=== PATIENT | male | born 1965 | race African-American/Black ===

== ENCOUNTER 2018-03-12 19:14 | Emergency (ER) | payer OTHER ==
[~2018-03-12] VITALS: Ht 177.8 cm; Wt 80.0 kg
[2018-03-12] MEDS ORDERED: KEPPSOL GT (19:21)
[2018-03-12] MEDS ORDERED: SODIUM CHLORIDE 0.9% 1,000 ML IV ONE (20:05)
[2018-03-12] MEDS ORDERED: LEVETIRACETAM 500MG PREMIX 100 ML IV ONE (20:15)
[2018-03-12 21:29] LABS: HEMATOCRIT. 26.5 % (42.0-52.0); HEMOGLOBIN. 8.6 g/dL (14.0-18.0); MEAN CORPUSCULAR HEMOGLOBIN 24.9 pg (28.0-32.0); MEAN CORPUSCULAR VOLUME 76.9 fL (80.0-94.0); MEAN PLATELET VOLUME 8.5 fl (7.4-10.4); PLATELET 117 x1000/uL (130-400); RED BLOOD CELL COUNT 3.45 mill/uL (4.7-6.1); RED CELL DISTRIBUTION WIDTH 21.1 % (11.6-14.6)
[2018-03-12 21:33] LABS: CHLORIDE 101 mEq/L (98-107)
[2018-03-12 22:00] LABS: PLATELET ESTIMATE DECREASED
[2018-03-12 22:03] LABS: ETHANOL BLOOD 301 mg/dL
[2018-03-13 06:20] VITALS: BP 122/78
== END 2018-03-13 06:36 | disposition home or self-care (01) ==
LOC: ER 19:14
DX: R56.9 Unspecified convulsions (principal); F10.229 Alcohol dependence with intoxication, unspecified; Z91.19 Patient's noncompliance with other medical treatment and regimen; Z79.899 Other long term (current) drug therapy; Y90.8 Blood alcohol level of 240 mg/100 ml or more
CPT/HCPCS: 36415; 70450; 70486; 80053; 85025; 96365; 99285; G0482; J1953; J7030; Z7610

== ENCOUNTER 2018-05-24 20:11 | Emergency (ER) | payer OTHER ==
[~2018-05-24] VITALS: Ht 182.9 cm; Wt 82.0 kg
[~2018-05-24 20:11] MED LIST: KEPPSOL GT
[2018-05-24] MEDS ORDERED: SODIUM CHLORIDE 0.9% 1,000 ML IV ONE (20:47)
[2018-05-24] MEDS ORDERED: LEVETIRACETAM 250MG TABLET PO ONE (21:00)
[2018-05-24 21:40] LABS: BASOPHILS % 2.5 % (0.0-2.0); EOSINOPHILS % 3.5 % (0.0-5.0); HEMATOCRIT. 27.7 % (42.0-52.0); HEMOGLOBIN. 8.7 g/dL (14.0-18.0); LYMPHOCYTES % 37.9 % (20.0-50.0); MEAN CORPUSCULAR HEMOGLOBIN 23.1 pg (28.0-32.0); MEAN CORPUSCULAR VOLUME 73.5 fL (80.0-94.0); MEAN PLATELET VOLUME 9.1 fl (7.4-10.4); MONOCYTES % 9.1 % (2.0-8.0); PLATELET 134 x1000/uL (130-400); RED BLOOD CELL COUNT 3.77 mill/uL (4.7-6.1)
[2018-05-24 21:48] LABS: INR 1.3; PROTHROMBIN TIME 12.7 sec (9.1-11.1)
[2018-05-24 21:53] LABS: CHLORIDE 95 mEq/L (98-107); PLATELET ESTIMATE NORMAL
[2018-05-24 22:08] LABS: ETHANOL BLOOD 330 mg/dL
[2018-05-25 05:53] VITALS: BP 135/85
== END 2018-05-25 06:04 | disposition home or self-care (01) ==
LOC: ER 20:11
DX: G40.909 Epilepsy, unspecified, not intractable, without status epilepticus (principal); F10.129 Alcohol abuse with intoxication, unspecified; D50.9 Iron deficiency anemia, unspecified; M79.602 Pain in left arm; I10 Essential (primary) hypertension; F17.200 Nicotine dependence, unspecified, uncomplicated; Z79.899 Other long term (current) drug therapy; Y90.8 Blood alcohol level of 240 mg/100 ml or more
CPT/HCPCS: 36415; 70450; 80053; 83605; 85025; 85610; 93005; 99285; G0482; J7030; Z7610

== ENCOUNTER 2018-07-05 19:28 | Emergency (ER) | payer OTHER ==
[~2018-07-05] VITALS: Ht 188 cm; Wt 100.0 kg
[2018-07-05] MEDS ORDERED: SODIUM CHLORIDE 0.9% 1,000 ML IV ONE (22:53)
[2018-07-05] MEDS ORDERED: LEVETIRACETAM 500MG PREMIX 100 ML IV ONE (23:00)
[2018-07-05] MEDS ORDERED: ONDANSETRON HCL 4MG/2ML INJ IV ONE (23:15)
[2018-07-06 02:14] LABS: CHLORIDE 102 mEq/L (98-107)
[2018-07-06] MEDS ORDERED: POTASSIUM CHLORIDE 20MEQ TABLET SR PO ONE (02:21)
[2018-07-06 02:37] LABS: ETHANOL BLOOD 365 mg/dL
[2018-07-06 03:02] LABS: BASOPHILS % 1.5 % (0.0-2.0); EOSINOPHILS % 4.3 % (0.0-5.0); HEMATOCRIT. 25.6 % (42.0-52.0); HEMOGLOBIN. 8.2 g/dL (14.0-18.0); LYMPHOCYTES % 37.9 % (20.0-50.0); MEAN CORPUSCULAR HEMOGLOBIN 22.1 pg (28.0-32.0); MEAN CORPUSCULAR VOLUME 68.9 fL (80.0-94.0); MEAN PLATELET VOLUME 8.6 fl (7.4-10.4); MONOCYTES % 8.4 % (2.0-8.0); NEUTROPHILS % 47.9 % (40.0-76.0); PLATELET 103 x1000/uL (130-400); RED BLOOD CELL COUNT 3.72 mill/uL (4.7-6.1); RED CELL DISTRIBUTION WIDTH 22.4 % (11.6-14.6)
[2018-07-06 05:00] LABS: PLATELET ESTIMATE DECREASED
[2018-07-06 06:00] VITALS: BP 121/74
== END 2018-07-06 06:15 | disposition home or self-care (01) ==
LOC: ER 19:28
DX: G93.40 Encephalopathy, unspecified (principal); G40.909 Epilepsy, unspecified, not intractable, without status epilepticus; F10.229 Alcohol dependence with intoxication, unspecified; I10 Essential (primary) hypertension; F12.10 Cannabis abuse, uncomplicated; F17.200 Nicotine dependence, unspecified, uncomplicated; Z79.899 Other long term (current) drug therapy; Y90.8 Blood alcohol level of 240 mg/100 ml or more
CPT/HCPCS: 36415; 80053; 82962; 85025; 96365; 96375; 99285; G0482; J1953; J2405; J7030

== ENCOUNTER 2018-07-13 20:45 | Emergency (ER) | payer OTHER ==
[~2018-07-13] VITALS: Ht 188 cm; Wt 82.0 kg
[2018-07-14 05:45] VITALS: BP 99/61
[2018-07-14] MEDS ORDERED: KETOROLAC 30MG/ML VIAL IV STA (06:29)
[2018-07-14] MEDS ORDERED: SODIUM CHLORIDE 0.9% 1,000 ML IV ONE (06:29)
[2018-07-14] MEDS ORDERED: LEVETIRACETAM 500MG PREMIX 100 ML IV ONE (06:30)
[2018-07-14 07:25] LABS: CHLORIDE 103 mEq/L (98-107)
[2018-07-14 07:28] LABS: ETHANOL BLOOD 172 mg/dL
[2018-07-14 08:39] LABS: *AMPHETAMINES SCREEN URINE NEGATIVE (NEGATIVE); *BARBITURATES SCREEN URINE NEGATIVE (NEGATIVE); *BENZODIAZEPINES SCREEN URINE PRESUMTIVE POSITIVE (NEGATIVE); *COCAINE SCREEN URINE NEGATIVE (NEGATIVE); METHADONE URINE SCREEN NEGATIVE (NEGATIVE); OPIATES URINE SCREEN NEGATIVE (NEGATIVE)
[2018-07-14 08:40] LABS: CANNABINOID URINE SCREEN PRESUMTIVE POSITIVE (NEGATIVE); PHENCYCLIDINE URINE SCREEN NEGATIVE (NEGATIVE)
[2018-07-14 08:41] LABS: HEMATOCRIT. 28.2 % (42.0-52.0); HEMOGLOBIN. 8.8 g/dL (14.0-18.0); MEAN CORPUSCULAR HEMOGLOBIN 22.2 pg (28.0-32.0); MEAN CORPUSCULAR VOLUME 71.1 fL (80.0-94.0); MEAN PLATELET VOLUME 8.8 fl (7.4-10.4); PLATELET 150 x1000/uL (130-400); RED BLOOD CELL COUNT 3.97 mill/uL (4.7-6.1); RED CELL DISTRIBUTION WIDTH 24.8 % (11.6-14.6)
[2018-07-14] MEDS ORDERED: SODIUM CHLORIDE 0.9% 1000ML BAG (SEPSIS BOLUS) IV ONE (09:00)
[2018-07-14] MEDS ORDERED: LEVOFLOXACIN 750MG PREMIX 150 ML IV ONE (09:00)
[2018-07-14 09:21] LABS: NUCLEATED RED BLOOD CELLS 2 /100 WBC
[2018-07-14 09:22] LABS: PLATELET ESTIMATE NORMAL
== END 2018-07-14 09:41 | disposition left against medical advice (07) ==
LOC: ER 22:48
DX: G40.909 Epilepsy, unspecified, not intractable, without status epilepticus (principal); S22.42XA Multiple fractures of ribs, left side, initial encounter for closed fracture; M25.512 Pain in left shoulder; M25.532 Pain in left wrist; M25.552 Pain in left hip; M79.672 Pain in left foot; W19.XXXA Unspecified fall, initial encounter; Y93.9 Activity, unspecified; Y92.9 Unspecified place or not applicable
CPT/HCPCS: 36415; 70450; 70486; 71045; 71100; 73030; 73110; 73502; 80053; 80305; 84484; 85025; 93005; 99284; G0482; J1953; J7030; J1885

== ENCOUNTER 2018-08-05 18:27 | Emergency (ER) | payer OTHER ==
[~2018-08-05] VITALS: Ht 180.3 cm; Wt 95.0 kg
[2018-08-05 19:43] LABS: HEMATOCRIT. 26.8 % (42.0-52.0); HEMOGLOBIN. 8.1 g/dL (14.0-18.0); MEAN CORPUSCULAR HEMOGLOBIN 21.2 pg (28.0-32.0); MEAN CORPUSCULAR VOLUME 69.9 fL (80.0-94.0); PLATELET 217 x1000/uL (130-400); RED BLOOD CELL COUNT 3.83 mill/uL (4.7-6.1)
[2018-08-05 19:45] LABS: CHLORIDE 97 mEq/L (98-107)
[2018-08-05 19:51] LABS: ETHANOL BLOOD 133 mg/dL; PHOSPHORUS 3.2 mg/dL (2.5-4.9)
[2018-08-05] MEDS ORDERED: ACETAMINOPHEN 325MG TABLET PO ONE (20:15)
[2018-08-05] MEDS ORDERED: SODIUM CHLORIDE 0.9% 1,000 ML IV ONE (20:15)
[2018-08-05 20:36] LABS: PLATELET ESTIMATE NORMAL
[2018-08-05 21:22] LABS: CLARITY URINE CLEAR (CLEAR); COLOR URINE YELLOW (YELLOW); KETONES URINE NEGATIVE (NEGATIVE); LEUKOCYTE ESTERASE URINE NEGATIVE (NEGATIVE); NITRITE URINE NEGATIVE (NEGATIVE); OCCULT BLOOD URINE NEGATIVE (NEGATIVE); PH URINE 5.5 (4.5-8.0); PROTEIN URINE NEGATIVE (NEGATIVE); SPECIFIC GRAVITY URINE 1.002 (1.005-1.030); UROBILINOGEN URINE 0.2 E.U./dL (0.2-1.0)
[2018-08-05] MEDS ORDERED: IOHEXOL-350 100 ML BOTTLE ONE (23:01)
[2018-08-05 23:30] VITALS: BP 132/88
== END 2018-08-06 00:36 | disposition home or self-care (01) ==
LOC: ER 18:27
DX: G40.909 Epilepsy, unspecified, not intractable, without status epilepticus (principal); R06.02 Shortness of breath; R07.89 Other chest pain; M79.89 Other specified soft tissue disorders; I44.0 Atrioventricular block, first degree; I11.9 Hypertensive heart disease without heart failure; F12.90 Cannabis use, unspecified, uncomplicated; Z79.899 Other long term (current) drug therapy; Z59.0 Homelessness
CPT/HCPCS: 36415; 71045; 71275; 80053; 81003; 83735; 83880; 84100; 84484; 85025; 85379; 93005; 93970; 99284; G0482; J7030; Q9967

== ENCOUNTER 2018-08-29 19:17 | Emergency (ER) | payer OTHER ==
[~2018-08-29] VITALS: Ht 177.8 cm; Wt 91.0 kg
[2018-08-29 19:23] VITALS: BP 114/74
== END 2018-08-29 22:50 | disposition left against medical advice (07) ==
LOC: EDBD → ER 19:17
DX: R07.89 Other chest pain (principal); Z53.21 Procedure and treatment not carried out due to patient leaving prior to being seen by health care provider

== ENCOUNTER 2018-08-30 18:32 | Emergency (ER) | payer OTHER ==
[~2018-08-30] VITALS: Ht 177.8 cm; Wt 98.0 kg
[2018-08-30] MEDS ORDERED: ACETAMINOPHEN 325MG TABLET PO STA (19:07)
[2018-08-30 21:14] LABS: HEMATOCRIT. 32.6 % (42.0-52.0); HEMOGLOBIN. 9.9 g/dL (14.0-18.0); MEAN CORPUSCULAR VOLUME 72.1 fL (80.0-94.0); MEAN PLATELET VOLUME 9.9 fl (7.4-10.4); PLATELET 82 x1000/uL (130-400); RED BLOOD CELL COUNT 4.51 mill/uL (4.7-6.1); RED CELL DISTRIBUTION WIDTH 28.4 % (11.6-14.6)
[2018-08-30 21:22] LABS: CHLORIDE 97 mEq/L (98-107); INR 1.1; PROTHROMBIN TIME 11.1 sec (9.1-11.1)
[2018-08-30 21:39] LABS: PLATELET ESTIMATE DECREASED
[2018-08-31 06:06] LABS: CLARITY URINE CLEAR (CLEAR); COLOR URINE YELLOW (YELLOW); KETONES URINE NEGATIVE (NEGATIVE); LEUKOCYTE ESTERASE URINE NEGATIVE (NEGATIVE); NITRITE URINE NEGATIVE (NEGATIVE); OCCULT BLOOD URINE NEGATIVE (NEGATIVE); PROTEIN URINE NEGATIVE (NEGATIVE); SPECIFIC GRAVITY URINE 1.005 (1.005-1.030); UROBILINOGEN URINE 0.2 E.U./dL (0.2-1.0)
[2018-08-31 10:49] VITALS: BP 128/80
== END 2018-08-31 10:55 | disposition home or self-care (01) ==
LOC: EDBD → ER 18:32
DX: R51 Headache (principal); R07.89 Other chest pain; M25.532 Pain in left wrist; M79.10 Myalgia, unspecified site; M25.522 Pain in left elbow; R11.0 Nausea; R56.9 Unspecified convulsions; I10 Essential (primary) hypertension; Z79.899 Other long term (current) drug therapy
CPT/HCPCS: 36415; 71045; 73080; 73090; 73110; 84484; 99284

== ENCOUNTER 2018-09-10 18:00 | Emergency (ER) | payer OTHER ==
[~2018-09-10] VITALS: Ht 185.4 cm; Wt 90.0 kg
[2018-09-10 18:04] VITALS: BP 112/74
== END 2018-09-10 22:05 | disposition left against medical advice (07) ==
LOC: EDBD → ER 18:00
DX: Z53.21 Procedure and treatment not carried out due to patient leaving prior to being seen by health care provider (principal)

== ENCOUNTER 2018-09-13 03:50 | Emergency (ER) | payer OTHER ==
[~2018-09-13] VITALS: Ht 188 cm; Wt 86.5 kg
[2018-09-13 04:06] VITALS: BP 152/99
== END 2018-09-13 09:17 | disposition left against medical advice (07) ==
LOC: EDBD → ER 03:50
DX: Z53.21 Procedure and treatment not carried out due to patient leaving prior to being seen by health care provider (principal)

== ENCOUNTER 2018-09-14 22:38 | Emergency (ER) | payer OTHER ==
[~2018-09-14] VITALS: Ht 172.7 cm; Wt 86.0 kg
[2018-09-14] MEDS ORDERED: ACETAMINOPHEN 325MG TABLET PO ONE (23:30)
[2018-09-15 00:30] LABS: CHLORIDE 101 mEq/L (98-107)
[2018-09-15 08:25] VITALS: BP 123/84
== END 2018-09-15 08:26 | disposition home or self-care (01) ==
LOC: EDBD → ER 22:38
DX: G40.909 Epilepsy, unspecified, not intractable, without status epilepticus (principal); M25.531 Pain in right wrist; M25.552 Pain in left hip; R51 Headache; F10.20 Alcohol dependence, uncomplicated; Y90.9 Presence of alcohol in blood, level not specified; W01.0XXA Fall on same level from slipping, tripping and stumbling without subsequent striking against object, initial encounter; Y93.89 Activity, other specified; Y92.89 Other specified places as the place of occurrence of the external cause; Z59.0 Homelessness
CPT/HCPCS: 36415; 73110; 80053; 99284; Z7610

== ENCOUNTER 2018-09-26 20:03 | Emergency (ER) | payer SELFPAY | END 2018-09-26 21:25 | disposition left against medical advice (07) | LOC: EDBD → ER 20:03 | DX: Z53.21 Procedure and treatment not carried out due to patient leaving prior to being seen by health care provider (principal) ==

== ENCOUNTER 2018-10-01 21:08 | Emergency (ER) | payer MEDICAID, OTHER ==
[~2018-10-01] VITALS: Ht 172.7 cm; Wt 83.0 kg
[2018-10-01] MEDS ORDERED: ASPIRIN 325MG EC TABLET PO ONE (23:15)
[2018-10-01] MEDS ORDERED: KETOROLAC 60MG/2ML VIAL IM ONE (23:30)
[2018-10-02 01:43] VITALS: BP 105/70
== END 2018-10-02 02:24 | disposition home or self-care (01) ==
LOC: ER 21:08
DX: G40.909 Epilepsy, unspecified, not intractable, without status epilepticus (principal); R07.9 Chest pain, unspecified; F12.10 Cannabis abuse, uncomplicated; Z98.890 Other specified postprocedural states; W18.30XA Fall on same level, unspecified, initial encounter; Y93.89 Activity, other specified; Y92.89 Other specified places as the place of occurrence of the external cause; Y99.8 Other external cause status
CPT/HCPCS: 71045; 93005; 96372; 99283; J1885

== ENCOUNTER 2018-10-02 02:54 | Emergency (ER) | payer OTHER ==
[~2018-10-02] VITALS: Ht 188 cm; Wt 86.0 kg
[2018-10-02 03:43] VITALS: BP 120/75
== END 2018-10-02 09:32 | disposition left against medical advice (07) ==
LOC: EDUNIT# 02:54 → ER 02:54
DX: R07.2 Precordial pain (principal); Z53.21 Procedure and treatment not carried out due to patient leaving prior to being seen by health care provider

== ENCOUNTER 2018-11-01 22:51 | Emergency (ER) | payer OTHER ==
[~2018-11-01] VITALS: Ht 188 cm; Wt 86.0 kg
[2018-11-02] MEDS ORDERED: ASPIRIN 81MG TABLET PO ONE (00:15)
[2018-11-02] MEDS ORDERED: NITROGLYCERIN 0.4MG TABLET SL SL PRN (00:15)
[2018-11-02 00:46] LABS: CHLORIDE 98 mEq/L (98-107)
[2018-11-02 01:23] LABS: HEMATOCRIT. 29.1 % (42.0-52.0); HEMOGLOBIN. 9.1 g/dL (14.0-18.0); MEAN CORPUSCULAR HEMOGLOBIN 22.5 pg (28.0-32.0); MEAN CORPUSCULAR VOLUME 72.3 fL (80.0-94.0); MEAN PLATELET VOLUME 8.5 fl (7.4-10.4); PLATELET 126 x1000/uL (130-400); RED BLOOD CELL COUNT 4.03 mill/uL (4.7-6.1); RED CELL DISTRIBUTION WIDTH 26.7 % (11.6-14.6)
[2018-11-02] MEDS ORDERED: POTASSIUM CHLORIDE 20MEQ TABLET SR PO SCH (02:30)
[2018-11-02 05:24] VITALS: BP 133/92
[2018-11-02 05:50] LABS: PLATELET ESTIMATE SLIGHTLY DECREASED
== END 2018-11-02 05:26 | disposition home or self-care (01) ==
LOC: ER 22:51
DX: R07.89 Other chest pain (principal); F12.10 Cannabis abuse, uncomplicated; I10 Essential (primary) hypertension; R56.9 Unspecified convulsions; Z98.890 Other specified postprocedural states
CPT/HCPCS: 36415; 71045; 83880; 84484; 93005; 99284

== ENCOUNTER 2018-11-02 19:59 | Emergency (ER) | payer OTHER ==
[~2018-11-02] VITALS: Ht 188 cm; Wt 82.0 kg
[2018-11-02] MEDS ORDERED: ONDANSETRON HCL 4MG/2ML INJ IV STA (23:39)
[2018-11-02] MEDS ORDERED: KETOROLAC 30MG/ML VIAL IV STA (23:39)
[2018-11-02] MEDS ORDERED: SODIUM CHLORIDE 0.9% 1,000 ML IV ONE (23:39)
[2018-11-02] MEDS ORDERED: MAGNESIUM/ALUMINUM HYDROXIDE/SIMETHICONE 30ML UDC PO ONE (23:45)
[2018-11-02] MEDS ORDERED: VISCOUS LIDOCAINE 2% 15 ML UDC PO ONE (23:45)
[2018-11-03 00:30] LABS: CHLORIDE 98 mEq/L (98-107)
[2018-11-03 00:36] LABS: BASOPHILS % 1.3 % (0.0-2.0); EOSINOPHILS % 6.9 % (0.0-5.0); HEMATOCRIT. 30.6 % (42.0-52.0); HEMOGLOBIN. 9.5 g/dL (14.0-18.0); LYMPHOCYTES % 55.4 % (20.0-50.0); MEAN CORPUSCULAR HEMOGLOBIN 22.5 pg (28.0-32.0); MEAN CORPUSCULAR VOLUME 72.7 fL (80.0-94.0); MEAN PLATELET VOLUME 8.8 fl (7.4-10.4); MONOCYTES % 11.4 % (2.0-8.0); PLATELET 136 x1000/uL (130-400); RED BLOOD CELL COUNT 4.21 mill/uL (4.7-6.1); RED CELL DISTRIBUTION WIDTH 27.4 % (11.6-14.6)
[2018-11-03] MEDS ORDERED: ASPIRIN 325MG TABLET PO ONE (01:15)
[2018-11-03] MEDS ORDERED: HEPARIN 5000 UNITS/ML VIAL IV SCH ×2 (01:33→01:35)
[2018-11-03 02:06] VITALS: BP 122/86
== END 2018-11-03 02:17 | disposition short-term general hospital (02) ==
LOC: ER 19:59
DX: I21.3 ST elevation (STEMI) myocardial infarction of unspecified site (principal); D50.9 Iron deficiency anemia, unspecified; R10.84 Generalized abdominal pain; I10 Essential (primary) hypertension
CPT/HCPCS: 36415; 71045; 80053; 82962; 83880; 84484; 85025; 93005; 96374; 96375; 99285; J1644; J1885; J2405; J7030; Z7610

== ENCOUNTER 2018-11-03 23:14 | Emergency (ER) | payer OTHER ==
[~2018-11-03] VITALS: Ht 182.9 cm; Wt 100.0 kg
[2018-11-04 07:28] VITALS: BP 133/75
== END 2018-11-04 09:04 | disposition left against medical advice (07) ==
LOC: ER 23:14
DX: R06.02 Shortness of breath (principal); Z53.21 Procedure and treatment not carried out due to patient leaving prior to being seen by health care provider

== ENCOUNTER 2018-11-07 20:08 | Emergency (ER) | payer OTHER ==
[~2018-11-07] VITALS: Ht 188 cm; Wt 82.0 kg
[2018-11-07 21:28] VITALS: BP 130/86
== END 2018-11-08 02:00 | disposition left against medical advice (07) ==
LOC: ER 20:08
DX: Z53.21 Procedure and treatment not carried out due to patient leaving prior to being seen by health care provider (principal)

== ENCOUNTER 2018-11-08 23:11 | Emergency (ER) | payer OTHER | END 2018-11-09 01:18 | disposition left against medical advice (07) | LOC: ER 23:11 | DX: R51 Headache (principal); Z53.21 Procedure and treatment not carried out due to patient leaving prior to being seen by health care provider ==

== ENCOUNTER 2018-11-09 02:10 | Emergency (ER) | payer OTHER ==
[~2018-11-09] VITALS: Ht 188 cm; Wt 82.0 kg
[2018-11-09 05:15] VITALS: BP 122/92
== END 2018-11-09 08:32 | disposition left against medical advice (07) ==
LOC: ER 02:10
DX: R56.9 Unspecified convulsions (principal); Z53.21 Procedure and treatment not carried out due to patient leaving prior to being seen by health care provider

== ENCOUNTER 2018-11-10 22:29 | Emergency (ER) | payer OTHER ==
[~2018-11-10] VITALS: Ht 177.8 cm; Wt 86.4 kg
[2018-11-11] MEDS ORDERED: SODIUM CHLORIDE 0.9% 1,000 ML IV ONE (01:57)
[2018-11-11] MEDS ORDERED: KETOROLAC 30MG/ML VIAL IV STA (01:57)
[2018-11-11 02:49] LABS: HEMATOCRIT. 27.9 % (42.0-52.0); HEMOGLOBIN. 8.8 g/dL (14.0-18.0); MEAN CORPUSCULAR HEMOGLOBIN 22.3 pg (28.0-32.0); MEAN CORPUSCULAR VOLUME 71.2 fL (80.0-94.0); MEAN PLATELET VOLUME 8.8 fl (7.4-10.4); PLATELET 277 x1000/uL (130-400); RED BLOOD CELL COUNT 3.92 mill/uL (4.7-6.1); RED CELL DISTRIBUTION WIDTH 25.8 % (11.6-14.6)
[2018-11-11 02:53] LABS: CHLORIDE 103 mEq/L (98-107)
[2018-11-11 02:54] LABS: CLARITY URINE CLEAR (CLEAR); COLOR URINE YELLOW (YELLOW); KETONES URINE NEGATIVE (NEGATIVE); LEUKOCYTE ESTERASE URINE NEGATIVE (NEGATIVE); NITRITE URINE NEGATIVE (NEGATIVE); OCCULT BLOOD URINE NEGATIVE (NEGATIVE); PH URINE 5.5 (4.5-8.0); PROTEIN URINE NEGATIVE (NEGATIVE); SPECIFIC GRAVITY URINE 1.003 (1.005-1.030); UROBILINOGEN URINE 0.2 E.U./dL (0.2-1.0)
[2018-11-11 03:03] LABS: *AMPHETAMINES SCREEN URINE NEGATIVE (NEGATIVE); *BARBITURATES SCREEN URINE NEGATIVE (NEGATIVE); *BENZODIAZEPINES SCREEN URINE NEGATIVE (NEGATIVE); *COCAINE SCREEN URINE NEGATIVE (NEGATIVE)
[2018-11-11 03:05] LABS: CANNABINOID URINE SCREEN PRESUMTIVE POSITIVE (NEGATIVE); METHADONE URINE SCREEN NEGATIVE (NEGATIVE); OPIATES URINE SCREEN NEGATIVE (NEGATIVE); PHENCYCLIDINE URINE SCREEN NEGATIVE (NEGATIVE)
[2018-11-11 03:06] LABS: ETHANOL BLOOD 311 mg/dL
[2018-11-11] MEDS ORDERED: LEVETIRACETAM 500MG PREMIX 100 ML IV NR (04:30)
[2018-11-11 05:31] LABS: PLATELET ESTIMATE NORMAL
[2018-11-11 09:19] VITALS: BP 109/74
== END 2018-11-11 09:42 | disposition home or self-care (01) ==
LOC: ER 22:29
DX: F10.129 Alcohol abuse with intoxication, unspecified (principal); G40.909 Epilepsy, unspecified, not intractable, without status epilepticus; F12.10 Cannabis abuse, uncomplicated; I10 Essential (primary) hypertension; F17.200 Nicotine dependence, unspecified, uncomplicated; D64.9 Anemia, unspecified; Z79.899 Other long term (current) drug therapy; Y90.8 Blood alcohol level of 240 mg/100 ml or more
CPT/HCPCS: 36415; 71045; 73502; 80053; 80305; 80320; 81003; 85025; 93005; 96365; 96375; 99284; J1885; J1953; J7030; Z7610; G0480

== ENCOUNTER 2018-11-13 20:47 | Emergency (ER) | payer OTHER ==
[~2018-11-13] VITALS: Ht 177.8 cm; Wt 95.0 kg
[2018-11-13 20:51] VITALS: BP 124/84
== END 2018-11-13 23:15 | disposition left against medical advice (07) ==
LOC: ER 20:47
DX: R51 Headache (principal); Z53.21 Procedure and treatment not carried out due to patient leaving prior to being seen by health care provider

== ENCOUNTER 2018-11-16 21:45 | Inpatient (IN) | payer OTHER ==
[~2018-11-16] VITALS: Ht 188 cm; Wt 78.1 kg
[2018-11-17] MEDS ORDERED: ACETAMINOPHEN 325MG TABLET PO STA (06:23)
[2018-11-17 07:01] LABS: CHLORIDE 102 mEq/L (98-107); HEMATOCRIT. 28.2 % (42.0-52.0); HEMOGLOBIN. 8.7 g/dL (14.0-18.0); MEAN CORPUSCULAR HEMOGLOBIN 22.2 pg (28.0-32.0); MEAN CORPUSCULAR VOLUME 71.9 fL (80.0-94.0); MEAN PLATELET VOLUME 8.8 fl (7.4-10.4); PLATELET 155 x1000/uL (130-400); RED BLOOD CELL COUNT 3.92 mill/uL (4.7-6.1); RED CELL DISTRIBUTION WIDTH 25.2 % (11.6-14.6)
[2018-11-17 07:44] LABS: CLARITY URINE CLEAR (CLEAR); COLOR URINE YELLOW (YELLOW); KETONES URINE NEGATIVE (NEGATIVE); LEUKOCYTE ESTERASE URINE NEGATIVE (NEGATIVE); NITRITE URINE NEGATIVE (NEGATIVE); OCCULT BLOOD URINE NEGATIVE (NEGATIVE); PH URINE 6.5 (4.5-8.0); PROTEIN URINE NEGATIVE (NEGATIVE); SPECIFIC GRAVITY URINE 1.009 (1.005-1.030); UROBILINOGEN URINE 0.2 E.U./dL (0.2-1.0)
[2018-11-17 07:46] LABS: PLATELET ESTIMATE NORMAL
[2018-11-17] MEDS ORDERED: ASPIRIN 81MG TABLET PO ONE (08:00)
[2018-11-17] MEDS ORDERED: HYDROCODONE/ACETAMINOPHEN 5/325MG TABLET PO PRN (09:30)
[2018-11-17] MEDS ORDERED: ZOLPIDEM TARTRATE 5MG TABLET PO PRN (09:30)
[2018-11-17] MEDS ORDERED: ONDANSETRON HCL 4MG/2ML INJ IV PRN (09:30)
[2018-11-17 09:57] LABS: CREATINE KINASE MB FRACTION 2.7 ng/mL (0.5-3.6)
[2018-11-17 10:24] LABS: HEPATITIS B SURFACE ANTIGEN NEGATIVE
[2018-11-17 10:54] LABS: HEPATITIS A AB IGM NEGATIVE (NEGATIVE)
[2018-11-17] MEDS ORDERED: LORAZEPAM 2MG/ML CPJ IV PRN (11:30)
[2018-11-17 15:04] LABS: *COCAINE SCREEN URINE NEGATIVE (NEGATIVE); METHADONE URINE SCREEN NEGATIVE (NEGATIVE)
[2018-11-17 15:05] LABS: *AMPHETAMINES SCREEN URINE NEGATIVE (NEGATIVE); *BARBITURATES SCREEN URINE NEGATIVE (NEGATIVE); *BENZODIAZEPINES SCREEN URINE NEGATIVE (NEGATIVE); CANNABINOID URINE SCREEN PRESUMTIVE POSITIVE (NEGATIVE); OPIATES URINE SCREEN NEGATIVE (NEGATIVE); PHENCYCLIDINE URINE SCREEN NEGATIVE (NEGATIVE)
[2018-11-17 17:24] VITALS: BP 128/85
[2018-11-17] MEDS: THIAMINE HCL 100MG TABLET PO SCH (17:57)
[2018-11-17 18:04] VITALS: BP 128/85
[2018-11-17 20:00] VITALS: BP 129/82
[2018-11-17] MEDS: LEVETIRACETAM 500MG TABLET PO SCH (20:09)
[2018-11-18] VITALS: BP 126/76
[2018-11-18 04:00] VITALS: BP 125/88
[2018-11-18 07:22] LABS: CHLORIDE 101 mEq/L (98-107)
[2018-11-18 07:30] LABS: BASOPHILS % 3.2 % (0.0-2.0); EOSINOPHILS % 5.8 % (0.0-5.0); HEMATOCRIT. 28.5 % (42.0-52.0); HEMOGLOBIN. 8.9 g/dL (14.0-18.0); LYMPHOCYTES % 22.3 % (20.0-50.0); MEAN CORPUSCULAR HEMOGLOBIN 22.3 pg (28.0-32.0); MEAN CORPUSCULAR VOLUME 71.6 fL (80.0-94.0); MEAN PLATELET VOLUME 8.8 fl (7.4-10.4); MONOCYTES % 11.3 % (2.0-8.0); NEUTROPHILS % 57.4 % (40.0-76.0); PLATELET 150 x1000/uL (130-400); RED BLOOD CELL COUNT 3.99 mill/uL (4.7-6.1); RED CELL DISTRIBUTION WIDTH 25.2 % (11.6-14.6)
[2018-11-18 08:00] VITALS: BP 125/78
[2018-11-18] MEDS: THIAMINE HCL 100MG TABLET PO SCH (09:22)
[2018-11-18] MEDS: LEVETIRACETAM 500MG TABLET PO SCH ×2 (09:22→20:14)
[2018-11-18] MEDS: ASPIRIN 81MG TABLET PO SCH (09:22)
[2018-11-18] MEDS: FOLIC ACID 1MG TABLET PO SCH (09:23)
[2018-11-18] MEDS: MULTIVITAMINS,THER W-MINERALS TABLET PO SCH (09:23)
[2018-11-18 12:00] VITALS: BP 110/66
[2018-11-18 16:00] VITALS: BP 128/76
[2018-11-18 20:00] VITALS: BP 121/83
[2018-11-18] MEDS: ACETAMINOPHEN 325MG TABLET PO PRN (20:24)
[2018-11-19] VITALS: BP 125/82
[2018-11-19 04:00] VITALS: BP 113/78
[2018-11-19 08:00] VITALS: BP 122/78
[2018-11-19] MEDS: LEVETIRACETAM 500MG TABLET PO SCH (08:57)
[2018-11-19] MEDS: FOLIC ACID 1MG TABLET PO SCH (08:57)
[2018-11-19] MEDS: THIAMINE HCL 100MG TABLET PO SCH (08:57)
[2018-11-19] MEDS: MULTIVITAMINS,THER W-MINERALS TABLET PO SCH (08:57)
[2018-11-19] MEDS: ASPIRIN 81MG TABLET PO SCH (08:57)
[2018-11-19] MEDS: ACETAMINOPHEN 325MG TABLET PO PRN (09:14)
[2018-11-19 12:00] VITALS: BP 122/77
[2018-11-19] MEDS ORDERED: ASPI-1160 PO (14:54)
[2018-11-19] MEDS ORDERED: DIPHENHYDRAMINE 12.5MG/5ML UDC PO PRN (15:00)
[2018-11-19 16:00] VITALS: BP 117/72
[2018-11-19 18:24] VITALS: BP 117/72
== END 2018-11-19 19:30 | disposition home or self-care (01) | DRG 203 ==
LOC: ER 21:45 → EDBEDREQ 11-17 08:57 → EDBEDREQSVC 11-17 08:57 → EDBEDREQ 11-17 08:58 → 5WST 11-17 12:19 → EDBEDREQSVC 11-17 12:20 → ENRESERV 11-17 15:05
PROVIDERS: ADMIT Internal Medicine; ATTEND Internal Medicine
DX: M94.0 Chondrocostal junction syndrome [Tietze] (principal); I11.0 Hypertensive heart disease with heart failure; E44.1 Mild protein-calorie malnutrition; I50.32 Chronic diastolic (congestive) heart failure; D64.9 Anemia, unspecified; D72.819 Decreased white blood cell count, unspecified; G40.909 Epilepsy, unspecified, not intractable, without status epilepticus; I44.0 Atrioventricular block, first degree; F10.10 Alcohol abuse, uncomplicated; F12.90 Cannabis use, unspecified, uncomplicated; B19.20 Unspecified viral hepatitis C without hepatic coma; Z68.22 Body mass index [BMI] 22.0-22.9, adult
CPT/HCPCS: 36415; 71045; 80061; 80305; 82550; 82553; 83880; 84443; 84484; 86705; 86709; 86803; 87340; 93005; 93306; 93970; 99285

== ENCOUNTER 2018-11-22 18:01 | Emergency (ER) | payer OTHER ==
[~2018-11-22] VITALS: Ht 188 cm; Wt 81.8 kg
[~2018-11-22 18:01] MED LIST changes: +ASPI-1160 PO
[2018-11-22] MEDS ORDERED: LEVETIRACETAM 500MG PREMIX 100 ML IV ONE (23:30)
[2018-11-23 00:14] LABS: HEMATOCRIT. 27.7 % (42.0-52.0); HEMOGLOBIN. 8.8 g/dL (14.0-18.0); MEAN CORPUSCULAR HEMOGLOBIN 22.7 pg (28.0-32.0); MEAN CORPUSCULAR VOLUME 71.7 fL (80.0-94.0); MEAN PLATELET VOLUME 8.6 fl (7.4-10.4); PLATELET 102 x1000/uL (130-400); RED BLOOD CELL COUNT 3.87 mill/uL (4.7-6.1); RED CELL DISTRIBUTION WIDTH 25.4 % (11.6-14.6)
[2018-11-23 00:17] LABS: CHLORIDE 102 mEq/L (98-107)
[2018-11-23 00:21] LABS: ETHANOL BLOOD 168 mg/dL
[2018-11-23 01:46] LABS: PLATELET ESTIMATE SLIGHTLY DECREASED
[2018-11-23 02:36] LABS: CLARITY URINE CLEAR (CLEAR); COLOR URINE YELLOW (YELLOW); KETONES URINE NEGATIVE (NEGATIVE); LEUKOCYTE ESTERASE URINE NEGATIVE (NEGATIVE); NITRITE URINE NEGATIVE (NEGATIVE); OCCULT BLOOD URINE NEGATIVE (NEGATIVE); PROTEIN URINE NEGATIVE (NEGATIVE); SPECIFIC GRAVITY URINE 1.003 (1.005-1.030); UROBILINOGEN URINE 0.2 E.U./dL (0.2-1.0)
[2018-11-23 02:46] LABS: *AMPHETAMINES SCREEN URINE NEGATIVE (NEGATIVE); *BARBITURATES SCREEN URINE NEGATIVE (NEGATIVE); *BENZODIAZEPINES SCREEN URINE NEGATIVE (NEGATIVE); *COCAINE SCREEN URINE NEGATIVE (NEGATIVE); METHADONE URINE SCREEN NEGATIVE (NEGATIVE); OPIATES URINE SCREEN NEGATIVE (NEGATIVE); PHENCYCLIDINE URINE SCREEN NEGATIVE (NEGATIVE)
[2018-11-23 02:47] LABS: CANNABINOID URINE SCREEN PRESUMTIVE POSITIVE (NEGATIVE)
[2018-11-23 03:54] VITALS: BP 120/77
== END 2018-11-23 04:31 | disposition home or self-care (01) ==
LOC: ER 18:01
DX: T51.0X1A Toxic effect of ethanol, accidental (unintentional), initial encounter (principal); R07.89 Other chest pain; R56.9 Unspecified convulsions; Y92.89 Other specified places as the place of occurrence of the external cause; I10 Essential (primary) hypertension; Z79.82 Long term (current) use of aspirin
CPT/HCPCS: 36415; 70450; 71045; 80053; 80305; 80320; 81003; 83690; 84484; 85025; 93005; 96374; 99284; J1953; G0480

== ENCOUNTER 2018-11-26 22:02 | Inpatient (IN) | payer OTHER ==
[~2018-11-26] VITALS: Ht 188 cm; Wt 82.1 kg
[2018-11-27] MEDS ORDERED: SODIUM CHLORIDE 0.9% 1,000 ML IV ONE (04:42)
[2018-11-27] MEDS ORDERED: LEVETIRACETAM 500MG PREMIX 100 ML IV ONE (04:45)
[2018-11-27 05:00] LABS: BASOPHILS % 1.9 % (0.0-2.0); EOSINOPHILS % 12.4 % (0.0-5.0); HEMATOCRIT. 27.3 % (42.0-52.0); HEMOGLOBIN. 8.5 g/dL (14.0-18.0); MEAN CORPUSCULAR HEMOGLOBIN 22.4 pg (28.0-32.0); MEAN CORPUSCULAR VOLUME 71.5 fL (80.0-94.0); MEAN PLATELET VOLUME 8.3 fl (7.4-10.4); MONOCYTES % 13.3 % (2.0-8.0); NEUTROPHILS % 21.4 % (40.0-76.0); PLATELET 156 x1000/uL (130-400); RED BLOOD CELL COUNT 3.82 mill/uL (4.7-6.1)
[2018-11-27 05:06] LABS: CHLORIDE 104 mEq/L (98-107)
[2018-11-27] MEDS ORDERED: GUAIFENESIN 200MG/10ML SUGAR FREE UDC PO PRN (09:00)
[2018-11-27] MEDS ORDERED: DOCUSATE SODIUM 100MG CAPSULE PO PRN (09:00)
[2018-11-27] MEDS ORDERED: DIPHENHYDRAMINE 50MG/ML VIAL IV PRN (09:00)
[2018-11-27] MEDS ORDERED: MAGNESIUM/ALUMINUM HYDROXIDE/SIMETHICONE 30ML UDC PO PRN (09:00)
[2018-11-27] MEDS ORDERED: ACETAMINOPHEN 325MG TABLET PO PRN (09:00)
[2018-11-27] MEDS ORDERED: ONDANSETRON HCL 4MG/2ML INJ IV PRN (09:00)
[2018-11-27] MEDS ORDERED: CLONIDINE 0.1MG TABLET PO PRN (09:00)
[2018-11-27] MEDS ORDERED: IPRATROPIUM/ALBUTEROL 0.5-3(2.5)MG/3ML NEB INH PRN (09:00)
[2018-11-27] MEDS ORDERED: HYDROCODONE/ACETAMINOPHEN 5/325MG TABLET PO PRN (09:00)
[2018-11-27 09:18] LABS: PHOSPHORUS 4.8 mg/dL (2.5-4.9)
[2018-11-27 10:13] VITALS: BP 135/85
[2018-11-27 10:21] VITALS: BP 135/85
[2018-11-27 11:37] VITALS: BP 142/94
[2018-11-27 14:32] VITALS: BP 142/94
[2018-11-27 15:11] LABS: CLARITY URINE CLEAR (CLEAR); COLOR URINE YELLOW (YELLOW); KETONES URINE NEGATIVE (NEGATIVE); LEUKOCYTE ESTERASE URINE NEGATIVE (NEGATIVE); NITRITE URINE NEGATIVE (NEGATIVE); OCCULT BLOOD URINE NEGATIVE (NEGATIVE); PROTEIN URINE NEGATIVE (NEGATIVE); SPECIFIC GRAVITY URINE 1.009 (1.005-1.030); UROBILINOGEN URINE 0.2 E.U./dL (0.2-1.0)
[2018-11-27 15:11] LABS: CREATINE KINASE MB FRACTION 2.6 ng/mL (0.5-3.6)
[2018-11-27 15:30] LABS: *AMPHETAMINES SCREEN URINE NEGATIVE (NEGATIVE); *BARBITURATES SCREEN URINE NEGATIVE (NEGATIVE)
[2018-11-27 15:31] LABS: *BENZODIAZEPINES SCREEN URINE NEGATIVE (NEGATIVE); *COCAINE SCREEN URINE NEGATIVE (NEGATIVE); CANNABINOID URINE SCREEN PRESUMTIVE POSITIVE (NEGATIVE); METHADONE URINE SCREEN NEGATIVE (NEGATIVE); OPIATES URINE SCREEN NEGATIVE (NEGATIVE); PHENCYCLIDINE URINE SCREEN NEGATIVE (NEGATIVE)
[2018-11-27 15:38] VITALS: BP 145/88
[2018-11-27 20:00] VITALS: BP 141/74
== END 2018-11-27 21:40 | disposition short-term general hospital (02) | DRG 203 ==
LOC: ER 22:31 → 8WST 11-27 05:34 → EDBEDREQTM 11-27 05:40 → EDBEDREQ 11-27 05:40 → ENRESERV 11-27 07:24
PROVIDERS: ADMIT Internal Medicine; ATTEND Internal Medicine
DX: R07.89 Other chest pain (principal); E44.1 Mild protein-calorie malnutrition; B19.20 Unspecified viral hepatitis C without hepatic coma; D72.819 Decreased white blood cell count, unspecified; R55 Syncope and collapse; F10.10 Alcohol abuse, uncomplicated; G40.909 Epilepsy, unspecified, not intractable, without status epilepticus; I10 Essential (primary) hypertension; F12.90 Cannabis use, unspecified, uncomplicated; D64.9 Anemia, unspecified; W18.30XA Fall on same level, unspecified, initial encounter; Y93.89 Activity, other specified; Y92.89 Other specified places as the place of occurrence of the external cause; Y99.8 Other external cause status; Z68.23 Body mass index [BMI] 23.0-23.9, adult
CPT/HCPCS: 36415; 71045; 73070; 80305; 82550; 82553; 83735; 83880; 84100; 84484; 93005; 96365; 99285; J1953; J7030

== ENCOUNTER 2018-12-02 20:45 | Emergency (ER) | payer OTHER ==
[~2018-12-02] VITALS: Ht 188 cm; Wt 87.0 kg
[2018-12-02] MEDS ORDERED: KETOROLAC 60MG/2ML VIAL IM STA (22:38)
[2018-12-02] MEDS ORDERED: LEVETIRACETAM 500MG TABLET PO ONE (22:45)
[2018-12-02 23:30] VITALS: BP 102/60
== END 2018-12-02 23:31 | disposition home or self-care (01) ==
LOC: ER 21:08
DX: S40.012A Contusion of left shoulder, initial encounter (principal); S50.02XA Contusion of left elbow, initial encounter; I11.0 Hypertensive heart disease with heart failure; I50.9 Heart failure, unspecified; G40.909 Epilepsy, unspecified, not intractable, without status epilepticus; Z79.899 Other long term (current) drug therapy; Z79.82 Long term (current) use of aspirin; W19.XXXA Unspecified fall, initial encounter; Y93.89 Activity, other specified; Y92.89 Other specified places as the place of occurrence of the external cause; Y99.8 Other external cause status
CPT/HCPCS: 73030; 73080; 96372; 99283; J1885

== ENCOUNTER 2018-12-03 00:01 | Emergency (ER) | payer OTHER ==
[~2018-12-03] VITALS: Ht 188 cm; Wt 86.0 kg
[2018-12-03 01:57] VITALS: BP 123/90
== END 2018-12-03 02:22 | disposition left against medical advice (07) ==
LOC: ER 00:01
DX: Z53.21 Procedure and treatment not carried out due to patient leaving prior to being seen by health care provider (principal)

== ENCOUNTER 2018-12-03 16:49 | Emergency (ER) | payer OTHER ==
[~2018-12-03] VITALS: Ht 188 cm; Wt 86.0 kg
[2018-12-03 18:29] LABS: BASOPHILS % 2.1 % (0.0-2.0); CHLORIDE 102 mEq/L (98-107); EOSINOPHILS % 5.9 % (0.0-5.0); HEMOGLOBIN. 7.6 g/dL (14.0-18.0); LYMPHOCYTES % 47.5 % (20.0-50.0); MEAN CORPUSCULAR HEMOGLOBIN 22.2 pg (28.0-32.0); MEAN CORPUSCULAR VOLUME 70.2 fL (80.0-94.0); MEAN PLATELET VOLUME 8.6 fl (7.4-10.4); MONOCYTES % 8.7 % (2.0-8.0); NEUTROPHILS % 35.8 % (40.0-76.0); PLATELET 154 x1000/uL (130-400); RED BLOOD CELL COUNT 3.42 mill/uL (4.7-6.1); RED CELL DISTRIBUTION WIDTH 24.7 % (11.6-14.6)
[2018-12-03] MEDS ORDERED: LEVETIRACETAM 500MG PREMIX 100 ML IV ONE (18:30)
[2018-12-03 18:34] LABS: ETHANOL BLOOD 260 mg/dL
[2018-12-03] MEDS ORDERED: KETOROLAC 15MG/ML VIAL IV ONE (19:00)
[2018-12-03 19:07] LABS: PLATELET ESTIMATE NORMAL
[2018-12-03] MEDS ORDERED: LEVETIRACETAM 500MG TABLET PO ONE (20:15)
[2018-12-03] MEDS ORDERED: IBUPROFEN 600MG TABLET PO ONE (20:15)
[2018-12-03 21:06] VITALS: BP 118/64
[2018-12-03 21:07] LABS: CLARITY URINE CLEAR (CLEAR); COLOR URINE YELLOW (YELLOW); KETONES URINE NEGATIVE (NEGATIVE); LEUKOCYTE ESTERASE URINE NEGATIVE (NEGATIVE); NITRITE URINE NEGATIVE (NEGATIVE); OCCULT BLOOD URINE NEGATIVE (NEGATIVE); PROTEIN URINE NEGATIVE (NEGATIVE); SPECIFIC GRAVITY URINE 1.005 (1.005-1.030); UROBILINOGEN URINE 0.2 E.U./dL (0.2-1.0)
[2018-12-03 21:21] LABS: CANNABINOID URINE SCREEN PRESUMTIVE POSITIVE (NEGATIVE); METHADONE URINE SCREEN NEGATIVE (NEGATIVE); OPIATES URINE SCREEN NEGATIVE (NEGATIVE); PHENCYCLIDINE URINE SCREEN NEGATIVE (NEGATIVE)
[2018-12-03 21:22] LABS: *AMPHETAMINES SCREEN URINE NEGATIVE (NEGATIVE); *BARBITURATES SCREEN URINE NEGATIVE (NEGATIVE); *BENZODIAZEPINES SCREEN URINE NEGATIVE (NEGATIVE); *COCAINE SCREEN URINE NEGATIVE (NEGATIVE)
== END 2018-12-03 21:30 | disposition home or self-care (01) ==
LOC: ER 16:49
DX: G40.909 Epilepsy, unspecified, not intractable, without status epilepticus (principal); S52.125A Nondisplaced fracture of head of left radius, initial encounter for closed fracture; W01.198A Fall on same level from slipping, tripping and stumbling with subsequent striking against other object, initial encounter; Y93.89 Activity, other specified; Y92.89 Other specified places as the place of occurrence of the external cause; Y99.8 Other external cause status; I10 Essential (primary) hypertension; F12.90 Cannabis use, unspecified, uncomplicated
CPT/HCPCS: 29105; 36415; 71045; 73080; 80053; 80305; 80320; 81003; 82962; 85025; 96374; 99284; J1885; J1953; A4565; G0480

== ENCOUNTER 2018-12-07 19:52 | Emergency (ER) | payer OTHER ==
[~2018-12-07] VITALS: Ht 188 cm; Wt 86.0 kg
[2018-12-08] MEDS ORDERED: LEVETIRACETAM 500MG PREMIX 100 ML IV ONE (00:45)
[2018-12-08 01:17] LABS: CHLORIDE 103 mEq/L (98-107)
[2018-12-08 01:18] LABS: BASOPHILS % 2.7 % (0.0-2.0); EOSINOPHILS % 6.5 % (0.0-5.0); HEMATOCRIT. 28.3 % (42.0-52.0); HEMOGLOBIN. 8.8 g/dL (14.0-18.0); LYMPHOCYTES % 35.1 % (20.0-50.0); MEAN CORPUSCULAR HEMOGLOBIN 21.9 pg (28.0-32.0); MEAN CORPUSCULAR VOLUME 70.2 fL (80.0-94.0); MEAN PLATELET VOLUME 8.6 fl (7.4-10.4); MONOCYTES % 7.6 % (2.0-8.0); NEUTROPHILS % 48.1 % (40.0-76.0); PLATELET 154 x1000/uL (130-400); RED BLOOD CELL COUNT 4.03 mill/uL (4.7-6.1); RED CELL DISTRIBUTION WIDTH 24.3 % (11.6-14.6)
[2018-12-08 01:20] LABS: INR 1.1; PROTHROMBIN TIME 11.3 sec (9.6-11.0)
[2018-12-08 01:28] LABS: ETHANOL BLOOD 296 mg/dL
[2018-12-08] MEDS ORDERED: LEVETIRACETAM 500MG TABLET PO ONE (02:30)
[2018-12-08 03:15] LABS: PLATELET ESTIMATE NORMAL
[2018-12-08 03:38] LABS: CLARITY URINE CLEAR (CLEAR); COLOR URINE PALE YELLOW (YELLOW); KETONES URINE NEGATIVE (NEGATIVE); LEUKOCYTE ESTERASE URINE NEGATIVE (NEGATIVE); NITRITE URINE NEGATIVE (NEGATIVE); OCCULT BLOOD URINE NEGATIVE (NEGATIVE); PROTEIN URINE NEGATIVE (NEGATIVE); SPECIFIC GRAVITY URINE 1.004 (1.005-1.030); UROBILINOGEN URINE 0.2 E.U./dL (0.2-1.0)
[2018-12-08 03:43] LABS: *AMPHETAMINES SCREEN URINE NEGATIVE (NEGATIVE); *BARBITURATES SCREEN URINE NEGATIVE (NEGATIVE); *BENZODIAZEPINES SCREEN URINE NEGATIVE (NEGATIVE); *COCAINE SCREEN URINE NEGATIVE (NEGATIVE)
[2018-12-08 03:44] LABS: CANNABINOID URINE SCREEN PRESUMTIVE POSITIVE (NEGATIVE); METHADONE URINE SCREEN NEGATIVE (NEGATIVE); OPIATES URINE SCREEN NEGATIVE (NEGATIVE); PHENCYCLIDINE URINE SCREEN NEGATIVE (NEGATIVE)
[2018-12-08 06:27] VITALS: BP 113/72
== END 2018-12-08 06:32 | disposition home or self-care (01) ==
LOC: ER 19:52
DX: G40.909 Epilepsy, unspecified, not intractable, without status epilepticus (principal); S09.8XXA Other specified injuries of head, initial encounter; F12.10 Cannabis abuse, uncomplicated; F10.129 Alcohol abuse with intoxication, unspecified; Y90.8 Blood alcohol level of 240 mg/100 ml or more; W01.10XA Fall on same level from slipping, tripping and stumbling with subsequent striking against unspecified object, initial encounter; Y93.89 Activity, other specified; Y92.89 Other specified places as the place of occurrence of the external cause
CPT/HCPCS: 36415; 70486; 80305; 80320; 99284; G0480

== ENCOUNTER 2018-12-11 20:29 | Emergency (ER) | payer OTHER ==
[~2018-12-11] VITALS: Ht 182.9 cm; Wt 86.0 kg
[2018-12-12] MEDS ORDERED: LEVETIRACETAM 500MG PREMIX 100 ML IV ONE (00:45)
[2018-12-12 04:24] VITALS: BP 140/85
== END 2018-12-12 04:25 | disposition home or self-care (01) ==
LOC: ER 20:29
DX: S50.12XA Contusion of left forearm, initial encounter (principal); S09.90XA Unspecified injury of head, initial encounter; R56.9 Unspecified convulsions; I10 Essential (primary) hypertension; F12.10 Cannabis abuse, uncomplicated; Z79.899 Other long term (current) drug therapy; Z79.82 Long term (current) use of aspirin; W22.8XXA Striking against or struck by other objects, initial encounter; Y93.89 Activity, other specified; Y92.89 Other specified places as the place of occurrence of the external cause; Y99.8 Other external cause status
CPT/HCPCS: 70450; 73080; 73090; 96365; 96366; 99284; J1953

== ENCOUNTER 2019-03-21 19:24 | Emergency (ER) | payer OTHER ==
[~2019-03-21] VITALS: Ht 188 cm; Wt 82.0 kg
[2019-03-22] MEDS: LEVETIRACETAM 1000MG/100ML 100 ML IV ONE
[2019-03-22 00:09] LABS: HEMATOCRIT. 29.6 % (42.0-52.0); HEMOGLOBIN. 9.1 g/dL (14.0-18.0); MEAN CORPUSCULAR HEMOGLOBIN 22.6 pg (28.0-32.0); MEAN CORPUSCULAR VOLUME 73.5 fL (80.0-94.0); MEAN PLATELET VOLUME 8.8 fl (7.4-10.4); PLATELET 188 x1000/uL (130-400); RED BLOOD CELL COUNT 4.02 mill/uL (4.7-6.1); RED CELL DISTRIBUTION WIDTH 24.8 % (11.6-14.6)
[2019-03-22 00:42] LABS: CHLORIDE 103 mEq/L (98-107)
[2019-03-22 01:06] LABS: CLARITY URINE CLEAR (CLEAR); COLOR URINE YELLOW (YELLOW); KETONES URINE NEGATIVE (NEGATIVE); LEUKOCYTE ESTERASE URINE NEGATIVE (NEGATIVE); NITRITE URINE NEGATIVE (NEGATIVE); OCCULT BLOOD URINE NEGATIVE (NEGATIVE); PROTEIN URINE NEGATIVE (NEGATIVE); SPECIFIC GRAVITY URINE 1.003 (1.005-1.030); UROBILINOGEN URINE 0.2 E.U./dL (0.2-1.0)
[2019-03-22 01:16] LABS: ETHANOL BLOOD 351 mg/dL
[2019-03-22 01:35] LABS: OPIATES URINE SCREEN NEGATIVE (NEGATIVE); PHENCYCLIDINE URINE SCREEN NEGATIVE (NEGATIVE)
[2019-03-22 01:36] LABS: *AMPHETAMINES SCREEN URINE NEGATIVE (NEGATIVE); *BARBITURATES SCREEN URINE NEGATIVE (NEGATIVE); *BENZODIAZEPINES SCREEN URINE NEGATIVE (NEGATIVE); *COCAINE SCREEN URINE NEGATIVE (NEGATIVE); CANNABINOID URINE SCREEN PRESUMTIVE POSITIVE (NEGATIVE); METHADONE URINE SCREEN NEGATIVE (NEGATIVE)
[2019-03-22 01:47] LABS: PLATELET ESTIMATE NORMAL
[2019-03-22 06:39] VITALS: BP 108/68
== END 2019-03-22 06:43 | disposition home or self-care (01) ==
LOC: ER 23:34
DX: R56.9 Unspecified convulsions (principal); F10.129 Alcohol abuse with intoxication, unspecified; Y90.8 Blood alcohol level of 240 mg/100 ml or more; F17.200 Nicotine dependence, unspecified, uncomplicated; F12.10 Cannabis abuse, uncomplicated; Z98.890 Other specified postprocedural states
CPT/HCPCS: 36415; 80053; 80305; 80320; 81003; 85025; 96365; 99283; J1953; G0480

== ENCOUNTER 2019-03-22 21:56 | Emergency (ER) | payer OTHER | END 2019-03-23 02:16 | disposition left against medical advice (07) | LOC: ER 21:56 | DX: Z53.21 Procedure and treatment not carried out due to patient leaving prior to being seen by health care provider (principal) ==

== ENCOUNTER 2019-04-24 20:18 | Emergency (ER) | payer MEDICAID, OTHER ==
[~2019-04-24] VITALS: Ht 188 cm; Wt 91.0 kg
[2019-04-25] MEDS ORDERED: SODIUM CHLORIDE 0.9% 1,000 ML IV ONE (00:35)
[2019-04-25] MEDS ORDERED: ONDANSETRON HCL 4MG/2ML INJ IV STA (00:35)
[2019-04-25] MEDS ORDERED: LEVETIRACETAM 500MG PREMIX 100 ML IV ONE (00:45)
[2019-04-25 01:44] LABS: MEAN CORPUSCULAR HEMOGLOBIN 22.8 pg (28.0-32.0); MEAN CORPUSCULAR VOLUME 73.3 fL (80.0-94.0); MEAN PLATELET VOLUME 9.1 fl (7.4-10.4); PLATELET 76 x1000/uL (130-400); RED BLOOD CELL COUNT 3.96 mill/uL (4.7-6.1); RED CELL DISTRIBUTION WIDTH 25.2 % (11.6-14.6)
[2019-04-25 01:46] LABS: CHLORIDE 100 mEq/L (98-107)
[2019-04-25 01:53] LABS: ETHANOL BLOOD 83 mg/dL
[2019-04-25 01:59] LABS: CREATINE KINASE 122 IU/L (39-308)
[2019-04-25 02:04] LABS: CARBAMAZEPINE < 0.5 ug/mL (4-12); PHENOBARBITAL < 2.1 ug/mL (15.0-40.0); VALPROIC ACID < 3.0 ug/mL (50-100)
[2019-04-25 02:26] LABS: PLATELET ESTIMATE DECREASED
[2019-04-25] MEDS ORDERED: ERYTHROMYCIN BASE 0.5% OPHTH OINT 3.5GM LEFTEYE ONE (07:15)
[2019-04-25 11:06] VITALS: BP 122/86
== END 2019-04-25 11:17 | disposition short-term general hospital (02) ==
LOC: ER 20:18
DX: N28.9 Disorder of kidney and ureter, unspecified (principal); G40.909 Epilepsy, unspecified, not intractable, without status epilepticus; H10.32 Unspecified acute conjunctivitis, left eye; F10.20 Alcohol dependence, uncomplicated; Y90.4 Blood alcohol level of 80-99 mg/100 ml; R07.89 Other chest pain; Z91.14 Patient's other noncompliance with medication regimen; Z91.81 History of falling
CPT/HCPCS: 36415; 70450; 71250; 80053; 80156; 80165; 80184; 80185; 80320; 82140; 82550; 84443; 85025; 93005; 96374; 99285; J1953; J7030; G0480

== ENCOUNTER 2019-04-27 17:22 | Emergency (ER) | payer OTHER ==
[~2019-04-27] VITALS: Ht 185.4 cm; Wt 120.0 kg
[2019-04-27] MEDS ORDERED: IBUPROFEN 600MG TABLET PO STA (18:07)
[2019-04-27] MEDS ORDERED: LEVETIRACETAM 500MG TABLET PO ONE (18:15)
[2019-04-27 19:36] LABS: HEMATOCRIT. 28.5 % (42.0-52.0); HEMOGLOBIN. 8.9 g/dL (14.0-18.0); MEAN CORPUSCULAR VOLUME 73.1 fL (80.0-94.0); MEAN PLATELET VOLUME 8.9 fl (7.4-10.4); PLATELET 94 x1000/uL (130-400)
[2019-04-27 19:39] LABS: CHLORIDE 101 mEq/L (98-107)
[2019-04-27 19:44] LABS: ETHANOL BLOOD 150 mg/dL
[2019-04-27 20:04] LABS: CLARITY URINE CLEAR (CLEAR); COLOR URINE YELLOW (YELLOW); KETONES URINE NEGATIVE (NEGATIVE); LEUKOCYTE ESTERASE URINE NEGATIVE (NEGATIVE); NITRITE URINE NEGATIVE (NEGATIVE); OCCULT BLOOD URINE NEGATIVE (NEGATIVE); PROTEIN URINE NEGATIVE (NEGATIVE); SPECIFIC GRAVITY URINE 1.007 (1.005-1.030); UROBILINOGEN URINE 0.2 E.U./dL (0.2-1.0)
[2019-04-27 20:17] LABS: PLATELET ESTIMATE DECREASED
[2019-04-27 20:38] LABS: *BARBITURATES SCREEN URINE NEGATIVE (NEGATIVE)
[2019-04-27 20:39] LABS: *AMPHETAMINES SCREEN URINE NEGATIVE (NEGATIVE); *BENZODIAZEPINES SCREEN URINE PRESUMTIVE POSITIVE (NEGATIVE); *COCAINE SCREEN URINE NEGATIVE (NEGATIVE); METHADONE URINE SCREEN NEGATIVE (NEGATIVE); OPIATES URINE SCREEN NEGATIVE (NEGATIVE); PHENCYCLIDINE URINE SCREEN NEGATIVE (NEGATIVE)
[2019-04-27 20:40] LABS: CANNABINOID URINE SCREEN PRESUMTIVE POSITIVE (NEGATIVE)
[2019-04-28] MEDS ORDERED: CHLORDIAZEPOXIDE 25MG CAPSULE PO ONE (01:00)
[2019-04-28 07:02] VITALS: BP 150/103
== END 2019-04-28 09:00 | disposition left against medical advice (07) ==
LOC: ER 17:22
DX: T51.91XA Toxic effect of unspecified alcohol, accidental (unintentional), initial encounter (principal); I10 Essential (primary) hypertension; R56.9 Unspecified convulsions; Z59.0 Homelessness; Z79.899 Other long term (current) drug therapy; Y92.89 Other specified places as the place of occurrence of the external cause
CPT/HCPCS: 36415; 80305; 80320; 81003; 93005; 99284; G0480

== ENCOUNTER 2019-04-29 20:48 | Emergency (ER) | payer OTHER ==
[~2019-04-29] VITALS: Ht 188 cm; Wt 81.0 kg
[2019-04-30 04:22] VITALS: BP 143/93
== END 2019-04-30 13:26 | disposition home or self-care (01) ==
LOC: ER 20:48
DX: S42.402A Unspecified fracture of lower end of left humerus, initial encounter for closed fracture (principal); F10.129 Alcohol abuse with intoxication, unspecified; I10 Essential (primary) hypertension; Z98.890 Other specified postprocedural states; Z79.82 Long term (current) use of aspirin; Z59.0 Homelessness; W01.0XXA Fall on same level from slipping, tripping and stumbling without subsequent striking against object, initial encounter; Y93.89 Activity, other specified; Y92.89 Other specified places as the place of occurrence of the external cause; Y99.8 Other external cause status; Y90.9 Presence of alcohol in blood, level not specified
CPT/HCPCS: 29105; 73080; 99283

== ENCOUNTER 2019-05-02 22:25 | Emergency (ER) | payer OTHER ==
[~2019-05-02] VITALS: Ht 182.9 cm; Wt 100.0 kg
[2019-05-02] MEDS ORDERED: SODIUM CHLORIDE 0.9% 1,000 ML IV ONE (22:39)
[2019-05-02] MEDS ORDERED: LEVETIRACETAM 1000MG/100ML 100 ML IV ONE (22:45)
[2019-05-02 23:10] LABS: HEMATOCRIT. 25.3 % (42.0-52.0); HEMOGLOBIN. 8.1 g/dL (14.0-18.0); MEAN CORPUSCULAR HEMOGLOBIN 22.9 pg (28.0-32.0); MEAN CORPUSCULAR VOLUME 71.6 fL (80.0-94.0); MEAN PLATELET VOLUME 8.6 fl (7.4-10.4); PLATELET 216 x1000/uL (130-400); RED BLOOD CELL COUNT 3.53 mill/uL (4.7-6.1)
[2019-05-02 23:14] LABS: CHLORIDE 104 mEq/L (98-107)
[2019-05-02 23:20] LABS: PLATELET ESTIMATE NORMAL
[2019-05-02 23:25] LABS: ETHANOL BLOOD 287 mg/dL
[2019-05-03 01:46] LABS: CLARITY URINE CLEAR (CLEAR); COLOR URINE YELLOW (YELLOW); KETONES URINE NEGATIVE (NEGATIVE); LEUKOCYTE ESTERASE URINE NEGATIVE (NEGATIVE); NITRITE URINE NEGATIVE (NEGATIVE); OCCULT BLOOD URINE NEGATIVE (NEGATIVE); PROTEIN URINE NEGATIVE (NEGATIVE); SPECIFIC GRAVITY URINE 1.004 (1.005-1.030); UROBILINOGEN URINE 0.2 E.U./dL (0.2-1.0)
[2019-05-03 02:01] LABS: *AMPHETAMINES SCREEN URINE NEGATIVE (NEGATIVE); *BARBITURATES SCREEN URINE NEGATIVE (NEGATIVE); *BENZODIAZEPINES SCREEN URINE PRESUMTIVE POSITIVE (NEGATIVE); *COCAINE SCREEN URINE NEGATIVE (NEGATIVE); CANNABINOID URINE SCREEN PRESUMTIVE POSITIVE (NEGATIVE); OPIATES URINE SCREEN NEGATIVE (NEGATIVE); PHENCYCLIDINE URINE SCREEN NEGATIVE (NEGATIVE)
[2019-05-03 02:02] LABS: METHADONE URINE SCREEN NEGATIVE (NEGATIVE)
[2019-05-03 03:33] VITALS: BP 132/78
== END 2019-05-03 03:36 | disposition home or self-care (01) ==
LOC: ER 22:25
DX: R56.9 Unspecified convulsions (principal); F10.129 Alcohol abuse with intoxication, unspecified; Y90.8 Blood alcohol level of 240 mg/100 ml or more; I10 Essential (primary) hypertension; Z79.82 Long term (current) use of aspirin
CPT/HCPCS: 36415; 80053; 80305; 80320; 81003; 85025; 99283; J1953; J7030; Z7610; G0480

== ENCOUNTER 2019-05-04 20:19 | Emergency (ER) | payer OTHER ==
[~2019-05-04] VITALS: Ht 177.8 cm; Wt 82.0 kg
[2019-05-04] MEDS ORDERED: SODIUM CHLORIDE 0.9% 1,000 ML IV ONE (22:45)
[2019-05-04 23:32] LABS: HEMATOCRIT. 23.1 % (42.0-52.0); HEMOGLOBIN. 7.4 g/dL (14.0-18.0); MEAN CORPUSCULAR VOLUME 71.6 fL (80.0-94.0); MEAN PLATELET VOLUME 8.9 fl (7.4-10.4); PLATELET 237 x1000/uL (130-400); RED BLOOD CELL COUNT 3.23 mill/uL (4.7-6.1); RED CELL DISTRIBUTION WIDTH 25.4 % (11.6-14.6)
[2019-05-04 23:40] LABS: CHLORIDE 109 mEq/L (98-107)
[2019-05-04 23:58] LABS: VALPROIC ACID < 3.0 ug/mL (50-100)
[2019-05-05 00:31] LABS: CLARITY URINE CLEAR (CLEAR); COLOR URINE YELLOW (YELLOW); KETONES URINE NEGATIVE (NEGATIVE); LEUKOCYTE ESTERASE URINE NEGATIVE (NEGATIVE); NITRITE URINE NEGATIVE (NEGATIVE); OCCULT BLOOD URINE NEGATIVE (NEGATIVE); PROTEIN URINE NEGATIVE (NEGATIVE); SPECIFIC GRAVITY URINE 1.003 (1.005-1.030); UROBILINOGEN URINE 0.2 E.U./dL (0.2-1.0)
[2019-05-05 00:48] LABS: ATYPICAL LYMPHOCYTES 1; PLATELET ESTIMATE NORMAL
[2019-05-05 00:59] LABS: *BARBITURATES SCREEN URINE NEGATIVE (NEGATIVE); *BENZODIAZEPINES SCREEN URINE PRESUMTIVE POSITIVE (NEGATIVE); *COCAINE SCREEN URINE NEGATIVE (NEGATIVE); METHADONE URINE SCREEN NEGATIVE (NEGATIVE); OPIATES URINE SCREEN NEGATIVE (NEGATIVE)
[2019-05-05 01:00] LABS: *AMPHETAMINES SCREEN URINE NEGATIVE (NEGATIVE); CANNABINOID URINE SCREEN PRESUMTIVE POSITIVE (NEGATIVE); PHENCYCLIDINE URINE SCREEN NEGATIVE (NEGATIVE)
[2019-05-05] MEDS ORDERED: CYANOCOBALAMIN 1000MCG/ML VIAL IM ONE (01:45)
[2019-05-05 06:26] LABS: HEPATITIS B SURFACE ANTIGEN NEGATIVE
[2019-05-05 06:55] LABS: HEPATITIS A AB IGM NEGATIVE (NEGATIVE)
[2019-05-05 08:33] VITALS: BP 128/86
[2019-05-07 04:12] LABS: HIV SCREEN 4G Non Reactive (Non Reactive)
== END 2019-05-05 08:59 | disposition home or self-care (01) ==
LOC: ER 20:19
DX: G40.909 Epilepsy, unspecified, not intractable, without status epilepticus (principal); I10 Essential (primary) hypertension; D57.1 Sickle-cell disease without crisis; Z86.2 Personal history of diseases of the blood and blood-forming organs and certain disorders involving the immune mechanism; Z79.82 Long term (current) use of aspirin
CPT/HCPCS: 36415; 71045; 80053; 80165; 80185; 80305; 80320; 81003; 82542; 83880; 84484; 85025; 87389; 93005; 99284; J3420; J7030; Z7610; 86705; 86709; 86803; 87340; G0480

== ENCOUNTER 2019-05-08 16:08 | Emergency (ER) | payer OTHER ==
[~2019-05-08] VITALS: Ht 182.9 cm; Wt 92.0 kg
[2019-05-08] MEDS ORDERED: ONDANSETRON HCL 4MG/2ML INJ IV ONE (17:15)
[2019-05-08] MEDS ORDERED: LEVETIRACETAM 500MG PREMIX 100 ML IV ONE (17:15)
[2019-05-08] MEDS ORDERED: FOLIC ACID 1 MG, THIAMINE HCL 100 MG, MVI, ADULT NO.1 10 ML in DEXTROSE 5% WATER 1,000 ML IV ONE ×4 (17:15)
[2019-05-08 18:11] LABS: HEMATOCRIT. 26.7 % (42.0-52.0); HEMOGLOBIN. 8.5 g/dL (14.0-18.0); MEAN CORPUSCULAR HEMOGLOBIN 22.7 pg (28.0-32.0); MEAN CORPUSCULAR VOLUME 71.6 fL (80.0-94.0); MEAN PLATELET VOLUME 7.8 fl (7.4-10.4); PLATELET 244 x1000/uL (130-400); RED BLOOD CELL COUNT 3.73 mill/uL (4.7-6.1); RED CELL DISTRIBUTION WIDTH 24.8 % (11.6-14.6)
[2019-05-08 18:16] LABS: CHLORIDE 107 mEq/L (98-107)
[2019-05-08 18:38] LABS: ETHANOL BLOOD 383 mg/dL
[2019-05-08 18:48] LABS: NUCLEATED RED BLOOD CELLS 1 /100 WBC; PLATELET ESTIMATE NORMAL
[2019-05-08 21:24] LABS: INR 1.2; PARTIAL THROMBOPLASTIN TIME 25.7 sec (23.4-31.0); PROTHROMBIN TIME 12.5 sec (9.6-11.0)
[2019-05-08 21:29] LABS: CREATINE KINASE 233 IU/L (39-308)
[2019-05-08 21:38] LABS: OPIATES URINE SCREEN NEGATIVE (NEGATIVE)
[2019-05-08 21:39] LABS: CREATINE KINASE MB FRACTION 2.4 ng/mL (0.5-3.6)
[2019-05-08 21:39] LABS: *AMPHETAMINES SCREEN URINE NEGATIVE (NEGATIVE); *BARBITURATES SCREEN URINE NEGATIVE (NEGATIVE); *BENZODIAZEPINES SCREEN URINE PRESUMTIVE POSITIVE (NEGATIVE); *COCAINE SCREEN URINE NEGATIVE (NEGATIVE); CANNABINOID URINE SCREEN PRESUMTIVE POSITIVE (NEGATIVE); METHADONE URINE SCREEN NEGATIVE (NEGATIVE); PHENCYCLIDINE URINE SCREEN NEGATIVE (NEGATIVE)
[2019-05-08] MEDS ORDERED: IOHEXOL-300 100 ML BOTTLE ONE (21:45)
[2019-05-08 23:49] VITALS: BP 132/82
== END 2019-05-09 00:06 | disposition home or self-care (01) ==
LOC: ER 16:08
DX: T51.0X1A Toxic effect of ethanol, accidental (unintentional), initial encounter (principal); G92 Toxic encephalopathy; F10.229 Alcohol dependence with intoxication, unspecified; Y90.8 Blood alcohol level of 240 mg/100 ml or more; S20.212A Contusion of left front wall of thorax, initial encounter; R03.0 Elevated blood-pressure reading, without diagnosis of hypertension; F12.90 Cannabis use, unspecified, uncomplicated; F15.10 Other stimulant abuse, uncomplicated; W01.0XXA Fall on same level from slipping, tripping and stumbling without subsequent striking against object, initial encounter; Y93.89 Activity, other specified; Y92.89 Other specified places as the place of occurrence of the external cause; G40.909 Epilepsy, unspecified, not intractable, without status epilepticus
CPT/HCPCS: 36415; 70450; 71101; 71260; 72125; 73502; 74177; 80048; 80305; 80307; 80320; 80329; 82550; 82553; 84484; 85025; 85610; 85730; 93005; 96365; 96366; 96368; 96375; 99284; J1953; J2405; J3411; J3490; J7070; Q9967; G0480

== ENCOUNTER 2019-05-09 18:48 | Emergency (ER) | payer OTHER ==
[~2019-05-09] VITALS: Ht 175.3 cm; Wt 82.0 kg
[2019-05-10 02:30] VITALS: BP 120/82
== END 2019-05-10 03:36 | disposition home or self-care (01) ==
LOC: ER 18:48
DX: G40.909 Epilepsy, unspecified, not intractable, without status epilepticus (principal); F10.20 Alcohol dependence, uncomplicated; Y90.0 Blood alcohol level of less than 20 mg/100 ml; D64.9 Anemia, unspecified; F41.9 Anxiety disorder, unspecified; K59.00 Constipation, unspecified; I10 Essential (primary) hypertension; F12.10 Cannabis abuse, uncomplicated; F13.20 Sedative, hypnotic or anxiolytic dependence, uncomplicated; Z87.09 Personal history of other diseases of the respiratory system; Z79.82 Long term (current) use of aspirin
CPT/HCPCS: 99283

== ENCOUNTER 2019-05-16 22:28 | Emergency (ER) | payer OTHER ==
[~2019-05-16] VITALS: Ht 188 cm; Wt 82.0 kg
[2019-05-17] MEDS ORDERED: ONDANSETRON HCL 4MG/2ML INJ IV STA (00:25)
[2019-05-17] MEDS ORDERED: LEVETIRACETAM 500MG PREMIX 100 ML IV ONE (00:30)
[2019-05-17 01:41] LABS: HEMATOCRIT. 26.4 % (42.0-52.0); HEMOGLOBIN. 8.3 g/dL (14.0-18.0); MEAN CORPUSCULAR HEMOGLOBIN 22.7 pg (28.0-32.0); MEAN CORPUSCULAR VOLUME 71.8 fL (80.0-94.0); RED BLOOD CELL COUNT 3.68 mill/uL (4.7-6.1); RED CELL DISTRIBUTION WIDTH 25.3 % (11.6-14.6)
[2019-05-17 01:47] LABS: CHLORIDE 106 mEq/L (98-107)
[2019-05-17 02:13] LABS: PLATELET ESTIMATE DECREASED
[2019-05-17 02:15] LABS: MEAN PLATELET VOLUME 8.5 fl (7.4-10.4); PLATELET 82 x1000/uL (130-400)
[2019-05-17 04:58] VITALS: BP 125/84
== END 2019-05-17 05:06 | disposition home or self-care (01) ==
LOC: ER 22:28
DX: R56.9 Unspecified convulsions (principal); M25.512 Pain in left shoulder; R51 Headache; F12.10 Cannabis abuse, uncomplicated; I10 Essential (primary) hypertension; M10.9 Gout, unspecified; Z98.890 Other specified postprocedural states; Z79.82 Long term (current) use of aspirin
CPT/HCPCS: 36415; 70450; 73070; 80053; 85025; 96374; 99284; J2405; Z7610; J1953

== ENCOUNTER 2019-05-17 18:49 | Emergency (ER) | payer OTHER ==
[~2019-05-17] VITALS: Ht 175.3 cm; Wt 70.0 kg
[~2019-05-17 18:49] MED LIST changes: -KEPPSOL GT; +KEPPSOL PO
[2019-05-17] MEDS ORDERED: MORPHINE SULFATE 4 MG/ML CPJ (NOT FOR IM USE) IV STA (19:33)
[2019-05-17] MEDS ORDERED: ONDANSETRON HCL 4MG/2ML INJ IV STA (19:33)
[2019-05-17] MEDS ORDERED: SODIUM CHLORIDE 0.9% 1,000 ML IV ONE (19:33)
[2019-05-17] MEDS ORDERED: LEVETIRACETAM 500MG PREMIX 100 ML IV ONE (19:45)
[2019-05-17 21:55] LABS: HEMATOCRIT. 23.8 % (42.0-52.0); HEMOGLOBIN. 7.5 g/dL (14.0-18.0); MEAN CORPUSCULAR HEMOGLOBIN 22.3 pg (28.0-32.0); MEAN CORPUSCULAR VOLUME 70.8 fL (80.0-94.0); PLATELET 93 x1000/uL (130-400); RED BLOOD CELL COUNT 3.36 mill/uL (4.7-6.1); RED CELL DISTRIBUTION WIDTH 25.5 % (11.6-14.6)
[2019-05-17 21:57] LABS: *AMPHETAMINES SCREEN URINE NEGATIVE (NEGATIVE); *BARBITURATES SCREEN URINE NEGATIVE (NEGATIVE); *BENZODIAZEPINES SCREEN URINE PRESUMTIVE POSITIVE (NEGATIVE); *COCAINE SCREEN URINE NEGATIVE (NEGATIVE)
[2019-05-17 21:58] LABS: CANNABINOID URINE SCREEN PRESUMTIVE POSITIVE (NEGATIVE); METHADONE URINE SCREEN NEGATIVE (NEGATIVE); OPIATES URINE SCREEN NEGATIVE (NEGATIVE); PHENCYCLIDINE URINE SCREEN NEGATIVE (NEGATIVE)
[2019-05-17 22:00] LABS: CHLORIDE 103 mEq/L (98-107)
[2019-05-17 22:08] LABS: CARBAMAZEPINE 2.1 ug/mL (4-12)
[2019-05-17 22:09] LABS: CREATINE KINASE 137 IU/L (39-308); CREATINE KINASE MB FRACTION 2.9 ng/mL (0.5-3.6)
[2019-05-17 22:14] LABS: PHENOBARBITAL < 2.1 ug/mL (15.0-40.0); VALPROIC ACID < 3.0 ug/mL (50-100)
[2019-05-17 22:20] LABS: ETHANOL BLOOD 392 mg/dL
[2019-05-17 23:03] LABS: PLATELET ESTIMATE DECREASED
[2019-05-18 05:58] VITALS: BP 162/56
== END 2019-05-18 06:42 | disposition home or self-care (01) ==
LOC: ER 18:49
DX: S09.8XXA Other specified injuries of head, initial encounter (principal); G93.40 Encephalopathy, unspecified; T51.0X1A Toxic effect of ethanol, accidental (unintentional), initial encounter; Y92.89 Other specified places as the place of occurrence of the external cause; D64.9 Anemia, unspecified; X58.XXXA Exposure to other specified factors, initial encounter; Y93.89 Activity, other specified; Y99.8 Other external cause status; F12.10 Cannabis abuse, uncomplicated; I10 Essential (primary) hypertension; Z79.82 Long term (current) use of aspirin; Z79.899 Other long term (current) drug therapy
CPT/HCPCS: 36415; 70450; 71045; 80053; 80156; 80165; 80184; 80185; 80305; 80320; 82550; 82553; 83880; 84443; 84484; 85025; 93005; 96365; 96375; 99284; C1893; J1953; J2270; J2405; J7030; Z7610; G0480

== ENCOUNTER 2019-05-18 19:26 | Emergency (ER) | payer OTHER ==
[~2019-05-18] VITALS: Ht 180.3 cm; Wt 82.0 kg
[2019-05-19] MEDS ORDERED: ONDANSETRON 4MG ODT PO ONE
[2019-05-19 09:00] VITALS: BP 121/87
== END 2019-05-19 09:33 | disposition home or self-care (01) ==
LOC: ER 19:26
DX: F10.229 Alcohol dependence with intoxication, unspecified (principal); I10 Essential (primary) hypertension; Z79.82 Long term (current) use of aspirin; Z79.899 Other long term (current) drug therapy; Y90.9 Presence of alcohol in blood, level not specified
CPT/HCPCS: 99283; Q0162; Z7610

== ENCOUNTER 2019-05-30 21:22 | Emergency (ER) | payer OTHER ==
[~2019-05-30] VITALS: Ht 188 cm; Wt 82.0 kg
[2019-05-30] MEDS ORDERED: LEVETIRACETAM 1000MG/100ML 100 ML IV ONE (22:00)
[2019-05-30 22:55] LABS: HEMATOCRIT. 24.4 % (42.0-52.0); HEMOGLOBIN. 7.8 g/dL (14.0-18.0); MEAN CORPUSCULAR HEMOGLOBIN 22.7 pg (28.0-32.0); MEAN CORPUSCULAR VOLUME 71.2 fL (80.0-94.0); MEAN PLATELET VOLUME 8.4 fl (7.4-10.4); PLATELET 131 x1000/uL (130-400); RED BLOOD CELL COUNT 3.43 mill/uL (4.7-6.1); RED CELL DISTRIBUTION WIDTH 25.4 % (11.6-14.6)
[2019-05-30 23:01] LABS: CHLORIDE 104 mEq/L (98-107)
[2019-05-30 23:11] LABS: ETHANOL BLOOD 419 mg/dL
[2019-05-30 23:40] LABS: PLATELET ESTIMATE NORMAL
[2019-05-31 00:07] VITALS: BP 128/73
[2019-05-31 00:30] LABS: CLARITY URINE CLEAR (CLEAR); COLOR URINE YELLOW (YELLOW); KETONES URINE NEGATIVE (NEGATIVE); LEUKOCYTE ESTERASE URINE NEGATIVE (NEGATIVE); NITRITE URINE NEGATIVE (NEGATIVE); OCCULT BLOOD URINE NEGATIVE (NEGATIVE); PROTEIN URINE NEGATIVE (NEGATIVE); SPECIFIC GRAVITY URINE 1.004 (1.005-1.030); UROBILINOGEN URINE 0.2 E.U./dL (0.2-1.0)
[2019-05-31 00:49] LABS: *BARBITURATES SCREEN URINE NEGATIVE (NEGATIVE); *BENZODIAZEPINES SCREEN URINE NEGATIVE (NEGATIVE); *COCAINE SCREEN URINE NEGATIVE (NEGATIVE); METHADONE URINE SCREEN NEGATIVE (NEGATIVE)
[2019-05-31 00:50] LABS: *AMPHETAMINES SCREEN URINE NEGATIVE (NEGATIVE); CANNABINOID URINE SCREEN PRESUMTIVE POSITIVE (NEGATIVE); OPIATES URINE SCREEN NEGATIVE (NEGATIVE); PHENCYCLIDINE URINE SCREEN NEGATIVE (NEGATIVE)
== END 2019-05-31 11:02 | disposition home or self-care (01) ==
LOC: ER 21:22
DX: R56.9 Unspecified convulsions (principal); F10.129 Alcohol abuse with intoxication, unspecified; Y90.8 Blood alcohol level of 240 mg/100 ml or more; F12.10 Cannabis abuse, uncomplicated; I10 Essential (primary) hypertension; Z98.890 Other specified postprocedural states; Z79.82 Long term (current) use of aspirin
CPT/HCPCS: 36415; 70450; 80053; 80305; 80320; 81003; 85025; 96365; 99284; J1953; G0480

== ENCOUNTER 2019-05-31 23:12 | Emergency (ER) | payer OTHER ==
[~2019-05-31] VITALS: Ht 188 cm; Wt 82.0 kg
[2019-06-01] MEDS ORDERED: SODIUM CHLORIDE 0.9% 1,000 ML IV ONE (03:21)
[2019-06-01 04:36] LABS: HEMATOCRIT. 26.5 % (42.0-52.0); HEMOGLOBIN. 8.2 g/dL (14.0-18.0); MEAN CORPUSCULAR HEMOGLOBIN 22.2 pg (28.0-32.0); MEAN CORPUSCULAR VOLUME 72.1 fL (80.0-94.0); MEAN PLATELET VOLUME 8.6 fl (7.4-10.4); PLATELET 135 x1000/uL (130-400); RED BLOOD CELL COUNT 3.67 mill/uL (4.7-6.1); RED CELL DISTRIBUTION WIDTH 25.2 % (11.6-14.6)
[2019-06-01 04:42] LABS: CHLORIDE 106 mEq/L (98-107)
[2019-06-01 04:53] LABS: ETHANOL BLOOD 292 mg/dL
[2019-06-01 05:08] LABS: CARBAMAZEPINE < 0.5 ug/mL (4-12); PHENOBARBITAL < 2.1 ug/mL (15.0-40.0); VALPROIC ACID < 3.0 ug/mL (50-100)
[2019-06-01] MEDS ORDERED: CARBAMAZEPINE 200MG TABLET PO ONE (05:15)
[2019-06-01 06:03] LABS: CLARITY URINE CLEAR (CLEAR); COLOR URINE YELLOW (YELLOW); KETONES URINE NEGATIVE (NEGATIVE); LEUKOCYTE ESTERASE URINE NEGATIVE (NEGATIVE); NITRITE URINE NEGATIVE (NEGATIVE); OCCULT BLOOD URINE NEGATIVE (NEGATIVE); PROTEIN URINE NEGATIVE (NEGATIVE); SPECIFIC GRAVITY URINE 1.008 (1.005-1.030); UROBILINOGEN URINE 0.2 E.U./dL (0.2-1.0)
[2019-06-01 06:16] VITALS: BP 127/94
[2019-06-01 06:18] LABS: *AMPHETAMINES SCREEN URINE NEGATIVE (NEGATIVE); *BARBITURATES SCREEN URINE NEGATIVE (NEGATIVE); *BENZODIAZEPINES SCREEN URINE PRESUMTIVE POSITIVE (NEGATIVE); *COCAINE SCREEN URINE NEGATIVE (NEGATIVE); CANNABINOID URINE SCREEN PRESUMTIVE POSITIVE (NEGATIVE); METHADONE URINE SCREEN NEGATIVE (NEGATIVE); OPIATES URINE SCREEN NEGATIVE (NEGATIVE); PHENCYCLIDINE URINE SCREEN NEGATIVE (NEGATIVE)
[2019-06-01 07:26] LABS: PLATELET ESTIMATE NORMAL
== END 2019-06-01 06:18 | disposition home or self-care (01) ==
LOC: ER 23:12
DX: G40.909 Epilepsy, unspecified, not intractable, without status epilepticus (principal); F10.10 Alcohol abuse, uncomplicated; D50.9 Iron deficiency anemia, unspecified; R51 Headache; R07.89 Other chest pain; I10 Essential (primary) hypertension; F12.10 Cannabis abuse, uncomplicated; Z79.82 Long term (current) use of aspirin
CPT/HCPCS: 36415; 71045; 80053; 80156; 80165; 80184; 80185; 80305; 80320; 81003; 84484; 85025; 93005; 99284; J7030; Z7610; G0480

== ENCOUNTER 2019-06-01 22:13 | Inpatient (IN) | payer OTHER ==
[~2019-06-01] VITALS: Ht 188 cm; Wt 77.6 kg
[2019-06-02] MEDS ORDERED: CARBAMAZEPINE 200MG TABLET PO ONE (01:30)
[2019-06-02] MEDS ORDERED: CARBAMAZEPINE 200MG TABLET PO SCH (02:30)
[2019-06-02] MEDS ORDERED: ACETAMINOPHEN 325MG TABLET PO STA (04:58)
[2019-06-02 05:19] LABS: HEMATOCRIT. 26.3 % (42.0-52.0); HEMOGLOBIN. 8.1 g/dL (14.0-18.0); MEAN CORPUSCULAR HEMOGLOBIN 22.6 pg (28.0-32.0); MEAN CORPUSCULAR VOLUME 72.9 fL (80.0-94.0); MEAN PLATELET VOLUME 8.8 fl (7.4-10.4); PLATELET 138 x1000/uL (130-400); RED CELL DISTRIBUTION WIDTH 25.1 % (11.6-14.6)
[2019-06-02 05:21] LABS: CHLORIDE 106 mEq/L (98-107)
[2019-06-02 05:25] LABS: ETHANOL BLOOD 201 mg/dL
[2019-06-02 06:23] LABS: PLATELET ESTIMATE NORMAL
[2019-06-02] MEDS ORDERED: ASPIRIN 325MG EC TABLET PO ONE (06:30)
[2019-06-02 09:00] VITALS: BP 134/91
[2019-06-02 10:00] VITALS: BP 134/91
[2019-06-02] MEDS ORDERED: CLONIDINE 0.1MG TABLET PO PRN (10:15)
[2019-06-02] MEDS ORDERED: DOCUSATE SODIUM 100MG CAPSULE PO PRN (10:15)
[2019-06-02] MEDS ORDERED: HYDROCODONE/ACETAMINOPHEN 5/325MG TABLET PO PRN (10:15)
[2019-06-02] MEDS ORDERED: ONDANSETRON HCL 4MG/2ML INJ IV PRN (10:15)
[2019-06-02] MEDS ORDERED: IPRATROPIUM/ALBUTEROL 0.5-3(2.5)MG/3ML NEB HHN PRN (10:15)
[2019-06-02] MEDS ORDERED: LORAZEPAM 0.5MG TABLET PO PRN (10:15)
[2019-06-02 12:00] VITALS: BP 127/87
[2019-06-02] MEDS: FUROSEMIDE 40MG/4ML VIAL IV SCH (12:02)
[2019-06-02 16:00] VITALS: BP 130/89
[2019-06-02] MEDS ORDERED: LORAZEPAM 2MG/ML CPJ IV PRN (17:00)
[2019-06-02] MEDS: THIAMINE HCL 100MG TABLET PO SCH (18:32)
[2019-06-02] MEDS: MULTIVITAMINS,THER W-MINERALS TABLET PO SCH (18:32)
[2019-06-02] MEDS: FOLIC ACID 1MG TABLET PO SCH (18:32)
[2019-06-02 20:00] VITALS: BP 131/95
[2019-06-02] MEDS: CHLORDIAZEPOXIDE 25MG CAPSULE PO SCH (21:37)
[2019-06-02] MEDS: LEVETIRACETAM 500MG/5ML CUP PO SCH (21:37)
[2019-06-03] VITALS: BP 137/96
[2019-06-03 04:00] VITALS: BP 121/88
[2019-06-03] MEDS: CHLORDIAZEPOXIDE 25MG CAPSULE PO SCH ×3 (06:38→21:57)
[2019-06-03 07:16] LABS: BASOPHILS % 1.1 % (0.0-2.0); EOSINOPHILS % 2.7 % (0.0-5.0); HEMATOCRIT. 27.5 % (42.0-52.0); HEMOGLOBIN. 8.7 g/dL (14.0-18.0); MEAN CORPUSCULAR HEMOGLOBIN 22.3 pg (28.0-32.0); MEAN CORPUSCULAR VOLUME 71.1 fL (80.0-94.0); MEAN PLATELET VOLUME 9.1 fl (7.4-10.4); MONOCYTES % 14.6 % (2.0-8.0); NEUTROPHILS % 61.6 % (40.0-76.0); PLATELET 145 x1000/uL (130-400); RED BLOOD CELL COUNT 3.88 mill/uL (4.7-6.1); RED CELL DISTRIBUTION WIDTH 24.4 % (11.6-14.6)
[2019-06-03 07:49] LABS: CHLORIDE 97 mEq/L (98-107)
[2019-06-03 08:00] VITALS: BP 128/89
[2019-06-03] MEDS: THIAMINE HCL 100MG TABLET PO SCH (09:04)
[2019-06-03] MEDS: FUROSEMIDE 40MG/4ML VIAL IV SCH (09:04)
[2019-06-03] MEDS: MULTIVITAMINS,THER W-MINERALS TABLET PO SCH (09:05)
[2019-06-03] MEDS: LEVETIRACETAM 500MG/5ML CUP PO SCH ×2 (09:05→21:57)
[2019-06-03] MEDS: FOLIC ACID 1MG TABLET PO SCH (09:05)
[2019-06-03] MEDS ORDERED: POTASSIUM CHLORIDE 20MEQ TABLET SR PO NR (10:15)
[2019-06-03 12:00] VITALS: BP 127/88
[2019-06-03 16:00] VITALS: BP 119/84
[2019-06-03] MEDS: ACETAMINOPHEN 325MG TABLET PO PRN ×2 (16:05→21:58)
[2019-06-03 20:00] VITALS: BP 116/83
[2019-06-04] VITALS: BP 107/79
[2019-06-04 04:00] VITALS: BP 118/82
[2019-06-04 06:16] LABS: HEMATOCRIT. 27.8 % (42.0-52.0); HEMOGLOBIN. 8.8 g/dL (14.0-18.0); MEAN CORPUSCULAR HEMOGLOBIN 22.2 pg (28.0-32.0); MEAN CORPUSCULAR VOLUME 70.5 fL (80.0-94.0); MEAN PLATELET VOLUME 9.1 fl (7.4-10.4); PLATELET 148 x1000/uL (130-400); RED BLOOD CELL COUNT 3.94 mill/uL (4.7-6.1); RED CELL DISTRIBUTION WIDTH 24.4 % (11.6-14.6)
[2019-06-04] MEDS: CHLORDIAZEPOXIDE 25MG CAPSULE PO SCH ×2 (06:35→14:00)
[2019-06-04 06:36] LABS: CHLORIDE 98 mEq/L (98-107)
[2019-06-04 08:00] VITALS: BP 112/80
[2019-06-04] MEDS ORDERED: POTASSIUM CHLORIDE 20MEQ TABLET SR PO NR (09:00)
[2019-06-04] MEDS: FUROSEMIDE 40MG/4ML VIAL IV SCH (09:12)
[2019-06-04] MEDS: MULTIVITAMINS,THER W-MINERALS TABLET PO SCH (09:14)
[2019-06-04] MEDS: THIAMINE HCL 100MG TABLET PO SCH (09:14)
[2019-06-04] MEDS: FOLIC ACID 1MG TABLET PO SCH (09:14)
[2019-06-04] MEDS: LEVETIRACETAM 500MG/5ML CUP PO SCH (09:14)
[2019-06-04] MEDS ORDERED: L25 PO (11:19)
[2019-06-04] MEDS ORDERED: THIA100T72 PO (11:19)
[2019-06-04] MEDS ORDERED: FOLI-43 PO (11:19)
[2019-06-04] MEDS ORDERED: CYAN500T66 MT (11:32)
[2019-06-04 12:00] VITALS: BP 110/74
[2019-06-04 13:12] LABS: PLATELET ESTIMATE NORMAL
[2019-06-04 14:17] VITALS: BP 110/74
[2019-06-04 14:24] LABS: VITAMIN B12 SERUM 989 pg/mL (211-911)
== END 2019-06-04 14:53 | disposition home or self-care (01) | DRG 203 ==
LOC: ER 22:22 → 6WST 06-02 07:09 → ENRESERV 06-02 07:40
PROVIDERS: ADMIT Internal Medicine; ATTEND Internal Medicine
DX: M94.0 Chondrocostal junction syndrome [Tietze] (principal); I24.9 Acute ischemic heart disease, unspecified; I11.0 Hypertensive heart disease with heart failure; I50.32 Chronic diastolic (congestive) heart failure; D50.9 Iron deficiency anemia, unspecified; B19.20 Unspecified viral hepatitis C without hepatic coma; F10.10 Alcohol abuse, uncomplicated; G40.909 Epilepsy, unspecified, not intractable, without status epilepticus; F12.90 Cannabis use, unspecified, uncomplicated; Z79.82 Long term (current) use of aspirin; Z79.899 Other long term (current) drug therapy
CPT/HCPCS: 36415; 71045; 80048; 80320; 82607; 83036; 83880; 84484; 93005; 99285; C1893; J1940; G0480

== ENCOUNTER 2019-06-13 20:14 | Emergency (ER) | payer OTHER ==
[~2019-06-13] VITALS: Ht 188 cm; Wt 82.0 kg
[~2019-06-13 20:14] MED LIST changes: +CYAN500T66 MT; +FOLI-43 PO; +L25 PO; +THIA100T72 PO
[2019-06-13 21:05] VITALS: BP 112/79
== END 2019-06-13 23:30 | disposition left against medical advice (07) ==
LOC: ER 20:14
DX: Z53.21 Procedure and treatment not carried out due to patient leaving prior to being seen by health care provider (principal)

== ENCOUNTER 2019-06-14 06:02 | Emergency (ER) | payer OTHER | END 2019-06-14 07:08 | disposition left against medical advice (07) | LOC: ER 06:02 | DX: R06.02 Shortness of breath (principal); Z53.21 Procedure and treatment not carried out due to patient leaving prior to being seen by health care provider ==

== ENCOUNTER 2019-06-18 19:25 | Emergency (ER) | payer OTHER ==
[~2019-06-18] VITALS: Ht 188 cm; Wt 82.0 kg
[2019-06-18] MEDS ORDERED: ACETAMINOPHEN 325MG TABLET PO ONE (22:45)
[2019-06-19 01:00] VITALS: BP 145/71
== END 2019-06-19 01:10 | disposition home or self-care (01) ==
LOC: ER 19:25
DX: S09.8XXA Other specified injuries of head, initial encounter (principal); S59.802A Other specified injuries of left elbow, initial encounter; F10.10 Alcohol abuse, uncomplicated; Y90.9 Presence of alcohol in blood, level not specified; F12.90 Cannabis use, unspecified, uncomplicated; W01.198A Fall on same level from slipping, tripping and stumbling with subsequent striking against other object, initial encounter; Y93.89 Activity, other specified; Y92.89 Other specified places as the place of occurrence of the external cause
CPT/HCPCS: 70450; 73080; 99284; Z7610

== ENCOUNTER 2019-06-24 19:57 | Inpatient (IN) | payer MEDICAID, OTHER ==
[~2019-06-24] VITALS: Ht 188 cm; Wt 83.9 kg
[2019-06-24] MEDS ORDERED: SODIUM CHLORIDE 0.9% 1,000 ML IV ONE (21:38)
[2019-06-24 22:38] LABS: HEMATOCRIT. 26.5 % (42.0-52.0); HEMOGLOBIN. 8.3 g/dL (14.0-18.0); MEAN CORPUSCULAR HEMOGLOBIN 21.9 pg (28.0-32.0); MEAN CORPUSCULAR VOLUME 70.2 fL (80.0-94.0); MEAN PLATELET VOLUME 8.7 fl (7.4-10.4); PLATELET 137 x1000/uL (130-400); RED BLOOD CELL COUNT 3.77 mill/uL (4.7-6.1); RED CELL DISTRIBUTION WIDTH 23.5 % (11.6-14.6)
[2019-06-24 22:42] LABS: CHLORIDE 98 mEq/L (98-107); INR 1.1; PROTHROMBIN TIME 11.6 sec (9.6-11.0)
[2019-06-24 22:47] LABS: ETHANOL BLOOD 233 mg/dL
[2019-06-24 22:49] LABS: LDL CHOLESTEROL 39 mg/dL (5-100)
[2019-06-24 22:51] LABS: CARBAMAZEPINE 0.9 ug/mL (4-12); CREATINE KINASE 84 IU/L (39-308)
[2019-06-24 22:54] LABS: PHENOBARBITAL < 2.1 ug/mL (15.0-40.0); PLATELET ESTIMATE NORMAL; VALPROIC ACID < 3.0 ug/mL (50-100)
[2019-06-24] MEDS ORDERED: FOLIC ACID 1 MG, THIAMINE HCL 100 MG, MVI, ADULT NO.1 10 ML in DEXTROSE 5% WATER 1,000 ML IV ONE ×4 (23:15)
[2019-06-24] MEDS ORDERED: PHENYTOIN SODIUM 1,000 MG in SODIUM CHLORIDE 0.9% 100 ML IV ONE (23:15)
[2019-06-24 23:41] LABS: CLARITY URINE CLEAR (CLEAR); COLOR URINE YELLOW (YELLOW); KETONES URINE NEGATIVE (NEGATIVE); LEUKOCYTE ESTERASE URINE NEGATIVE (NEGATIVE); NITRITE URINE NEGATIVE (NEGATIVE); OCCULT BLOOD URINE NEGATIVE (NEGATIVE); PROTEIN URINE NEGATIVE (NEGATIVE); SPECIFIC GRAVITY URINE 1.007 (1.005-1.030)
[2019-06-25] VITALS (21 sets, daily range): BP systolic 110–149; BP diastolic 73–95
[2019-06-25] MEDS ORDERED: ASPIRIN 325MG EC TABLET PO ONE (00:15)
[2019-06-25 00:17] LABS: *AMPHETAMINES SCREEN URINE NEGATIVE (NEGATIVE); *BARBITURATES SCREEN URINE NEGATIVE (NEGATIVE); *BENZODIAZEPINES SCREEN URINE PRESUMTIVE POSITIVE (NEGATIVE); *COCAINE SCREEN URINE NEGATIVE (NEGATIVE); METHADONE URINE SCREEN NEGATIVE (NEGATIVE)
[2019-06-25 00:18] LABS: CANNABINOID URINE SCREEN PRESUMTIVE POSITIVE (NEGATIVE); OPIATES URINE SCREEN NEGATIVE (NEGATIVE); PHENCYCLIDINE URINE SCREEN NEGATIVE (NEGATIVE)
[2019-06-25] MEDS ORDERED: LORAZEPAM 2MG/ML CPJ IV PRN (10:45)
[2019-06-25] MEDS ORDERED: LEVETIRACETAM 500MG TABLET PO SCH (12:00)
[2019-06-25] MEDS ORDERED: FOLIC ACID 1 MG, THIAMINE HCL 100 MG, MVI, ADULT NO.1 10 ML in DEXTROSE 5% WATER 1,000 ML IV SCH ×4 (21:00)
[2019-06-26] MEDS ORDERED: INFLUENZA VIRUS VACCINE(AFLURIA) 0.5ML SYR IM ONE (10:00)
== END 2019-06-25 17:30 | disposition home or self-care (01) | DRG 53 ==
LOC: ER 19:57 → 3WST 06-25 02:02 → EDBEDREQTM 06-25 02:07 → EDBEDREQ 06-25 02:07 → EDBEDREQDT 06-25 02:07 → ENRESERV 06-25 07:16
PROVIDERS: ADMIT Internal Medicine; ATTEND Internal Medicine
DX: G40.909 Epilepsy, unspecified, not intractable, without status epilepticus (principal); I11.0 Hypertensive heart disease with heart failure; I50.32 Chronic diastolic (congestive) heart failure; E44.1 Mild protein-calorie malnutrition; F10.129 Alcohol abuse with intoxication, unspecified; M10.9 Gout, unspecified; F17.210 Nicotine dependence, cigarettes, uncomplicated; E87.6 Hypokalemia; D64.9 Anemia, unspecified; B19.20 Unspecified viral hepatitis C without hepatic coma; Y90.7 Blood alcohol level of 200-239 mg/100 ml; Z91.14 Patient's other noncompliance with medication regimen; Z91.19 Patient's noncompliance with other medical treatment and regimen; Z68.23 Body mass index [BMI] 23.0-23.9, adult; Z71.41 Alcohol abuse counseling and surveillance of alcoholic; F12.90 Cannabis use, unspecified, uncomplicated
CPT/HCPCS: 36415; 70544; 70547; 70553; 71045; 80156; 80165; 80184; 80185; 80305; 80320; 81003; 82550; 82962; 83721; 83880; 84484; 90686; 93005; 93970; 96361; 96365; 96366; 96368; 99291; C1893; J1165; J3411; J3490; J7030; J7050; J7070; G0480